=== PATIENT | male | born 1985 | race Caucasian/White ===

== ENCOUNTER 2025-03-21 15:50 | Inpatient (IN) | payer OTHER, SELFPAY ==
[2025-03-21] VITALS (51 sets, daily range): BP systolic 97–132; BP diastolic 46–113; PULSE 70–90; RESP 8–26; TEMP 36.6–36.8; O2SAT 87–98
--- NOTE | 2025-03-21 15:45 | RT.EKG_ITS ---
APPROVED REPORT Exam: Resting ECG Reason for Exam: chest ightness Patient Location: E HR:78 bpm ECG Measurements Heart Rate 78 AXIS AK 148 P 29 QRSd 113 QRS 13 QT 398 T 18 QTc 454 Conclusion Sinus rhythm...normal P axis, V-rate 60- 99
--- NOTE | 2025-03-21 16:15 | W.ED.GENAD ---
Discharge Plan Disposition Patient Disposition: Admit to [facility] Condition: Improving Discharge Details Clinical Impression: Hyperglycemia due to type 2 diabetes mellitus, Acute on chronic renal failure, Hyperglycemia without ketosis ED Provider: Danny Jennings Home Meds and New Rx's Prescriptions: Continued Ozempic 0.25 mg or 0.5 mg(2 mg/1.5 mL) pen injector 0.25 mg subcut QWEEK Rx Instructions: for 4 weeks losartan [Cozaar] 100 mg tablet 100 mg PO DAILY propranolol [Inderal LA] 120 mg capsule,extended release 24 hr 240 mg PO DAILY gabapentin 800 mg tablet 800 mg PO TID omeprazole 20 mg capsule,delayed release(DR/EC) 20 mg PO DAILY allopurinol 200 mg tablet 200 mg PO DAILY albuterol 90 mcg/actuation aerosol inhalation PRN colchicine 0.6 mg capsule 0.6 mg PO 4XW chlorthalidone 25 mg tablet 25 mg PO DAILY Discharge Data Discharge Physician: Danny Jennings HPI General Date/Time Provider Initiated Documentation: 03/21/25 16:15. HPI Narrative: Patient presents emergency department for he went to the clinic at the [facility] and they told him his sugar was 500 he does experience that he has been having polydipsia and polyuria and was recently started on Ozempic Related Data Home Medications ?Medication ?Instructions ?Recorded ?Confirmed albuterol 90 mcg/actuation aerosol mcg inhalation PRN 03/21/25 inhaler allopurinol 200 mg tablet 200 mg PO DAILY 03/21/25 03/21/25 chlorthalidone 25 mg tablet 25 mg PO DAILY 03/21/25 03/21/25 colchicine 0.6 mg capsule 0.6 mg PO 4XW 03/21/25 03/21/25 gabapentin 800 mg tablet 800 mg PO TID 03/21/25 03/21/25 losartan 100 mg tablet (Cozaar) 100 mg PO DAILY 03/21/25 03/21/25 omeprazole 20 mg capsule,delayed 20 mg PO DAILY 03/21/25 03/21/25 release propranolol 120 mg capsule,24 240 mg PO DAILY 03/21/25 03/21/25 hr,extended release (Inderal LA) semaglutide 0.25 mg or 0.5 mg (2 0.25 mg subcut QWEEK 03/21/25 03/21/25 mg/1.5 mL) subcutaneous pen injector (Ozempic) Allergies Allergy/AdvReac Type Severity Reaction Status Date / Time No Known Allergies Allergy Unverified 03/21/25 16:02 General Stated Complaint: Diabetes TWILA: 2 Review of Systems Narrative: Review of Systems: Constitutional: No fevers, chills, sweats Eye: No recent visual problems ENT: No ear pain, nasal congestion, sore throat Respiratory: No shortness of breath, cough Cardiovascular: No Chest pain, palpitations, syncope Gastrointestinal: No nausea, vomiting, diarrhea Genitourinary: No hematuria Shubham/Lymph: Negative for bruising tendency, swollen lymph glands Musculoskeletal: No back pain, neck pain, joint pain, muscle pain, decreased range of motion Integumentary: No rash, pruritus, abrasions Neurologic: Alert & oriented X 4 Psychiatric: No anxiety, depression Exam Narrative Exam Narrative: Exam; vitals signs as reported above normal Constitutional; In no acute distress, afebrile General: cooperative, healthy appearing, comfortable and no acute distress HEENT: Head: normal to inspection, no palpable skull fracture and normocephalic atraumatic Eyes: : appearance normal, both eyes and all related structures EOM intact bilaterally Pupils: PERRL : conjunctiva normal Direct ophthalmoscopy: normal light reflex, normal conjunctiva, normal visual acuity Ears: Normal TM, normal external canal Nose: normal no rhinorreha Neck no JVD, supple non tender Neck: normal visual inspection, full ROM and no lymphadenopathy Chest: normal inspection of the chest Respiratory : normal respiratory effort and able to speak in complete sentences no wheezing no rales Cardio Rate: regular rate, rhythm: regular rhythm normal heart sounds S1 and S2 no murmurs, gallops, or rubs GI : normal to inspection, normal bowel sounds, soft, non tender, non distended, no organomegaly Back/Spine/ no CVA tenderness Thoracic/Lumbar Spine: no tenderness or deformities Skin no rashes or lesions Neuro: patient alert oriented x 4 and no meningeal signs, Cranial Nerves: CN's II-XI intact bilaterally, Cognition: normal cognition, Speech: speech normal, Gait: normal gait, Depp tendon reflexes normal 2+ muscle strength 5/5 bilaterally Extremities, no edema, full range of motion, normal strength Course Vital Signs Vital signs: Vital Signs Temperature 36.8 C 03/21/25 15:57 Pulse 81 03/21/25 15:57 Respiratory Rate 18 03/21/25 15:57 Blood Pressure 119/85 03/21/25 15:57 Pulse Oximetry 93 03/21/25 15:57 Temperature 36.8 C 03/21/25 15:57 Temperature Source Oral 03/21/25 15:57 Pulse 81 03/21/25 15:57 Respiratory Rate 18 03/21/25 15:57 Blood Pressure 119/85 03/21/25 15:57 Pulse Oximetry 93 03/21/25 15:57 Medical Decision Making MDM: Summary: Patient presents emergency department with believe simple area and he does not know he is diabetic although he suspected it. He said he started healthy stopped drinking and stop smoking. Here in the emergency department he looks well physical exam is unremarkable but his fingerstick is greater than 600 in the blood sugar level was 536 with pseudohyponatremia with a sodium of 124. EKG does not show any acute abnormality troponin is negative his creatinine is elevated at 3 with a BUN of 54. Patient received IV fluids and will receive 2 days of regular insulin and he probably will need to be admitted for an insulin drip and for management of his new onset diabetes Data Review Analysis All the data on this patient was reviewed by me including laboratory and imaging studies as well as bedside studies performed by me Independent review of Studies Imaging Lab: As reported above Risk Stratification: Patient with new onset diabetes will need to be admitted for IV hydration and blood sugar management Differential Diagnosis: 1. Hyperosmolar nonketotic type 2 diabetes mellitus 2. Hyperglycemia 3. DKA 4. Pseudohyponatremia 5. Acute on chronic renal failure Consultants: Spoke with the hospitalist who agreed to admit the patient Shared disposition: Patient agrees to stay in the hospital for blood sugar management Impression: Medical Records Medical records reviewed: Yes I reviewed the patient's medical records. Lab Data Lab results reviewed: Yes I reviewed the patient's lab results. ECG Data Attestation: I personally reviewed and interpreted this ECG (s) as follows: Interpretation: Heart rate 78 normal sinus rhythm no acute ST-T changes PFSH All Active Problems (Updated 03/21/25 @ 17:31 by Danny Jennings MD) Hyperglycemia without ketosis (Acute) Acute on chronic renal failure (Acute) Hyperglycemia due to type 2 diabetes mellitus (Acute) Social History Smoking/Tobacco Use Status: Current every day Tobacco Type: cigarettes Smoking risk assessment performed?: Yes Alcohol Intake: current Alcohol Intake frequency: 3 or more drinks per day Drug use: Daily Substance use type: marijuana Housing: house Do you feel safe at home: Yes Do you feel safe in your relationship?: Yes
[2025-03-21 16:40] LABS: Abs Immature Grans 0.03 10^3/uL (0.0-0.06); HCT 42.8 % (40.0-50.0); HGB 15.5 g/dL (13.5-17.5); Immature Grans % 0.3 %; MCH 30.6 pg (27.0-33.0); MCHC 36.2 % (32.0-36.0); MCV 85 fL (80-95); MPV 11.6 fL (8.0-11.0); Platelet Count 345 10^3/uL (130-400); RBC 5.06 10^6/uL (4.36-5.78); RDW 11.3 % (11.8-14.1); RDW-SD 34.5 fL; WBC 10.81 10^3/uL (4.4-10.8)
[2025-03-21 17:01] LABS: ALT 149 U/L (16-63); AST 99 U/L (15-37); Albumin 4.6 g/dL (3.4-5.0); Alkaline Phosphatase 130 U/L (46-116); Anion Gap 12.1 mmol/L (3-11); BUN 42 mg/dL (7-18); Bilirubin, Total 0.8 mg/dL (0.2-1.0); CO2 27.9 mmol/L (21.0-32.0); Calcium 10.3 mg/dL (8.5-10.1); Chloride 84 mmol/L (98-107); Estimated GFR 24.95 (mL/min/1.73m2); Magnesium 2.6 mg/dL (1.8-2.4); Potassium 3.2 mmol/L (3.5-5.1); Total Protein 9.4 g/dL (6.4-8.2); Troponin I 7 ng/L (<or=76)
[2025-03-21 17:06] LABS: Glucose 533 mg/dL (74-106); Sodium 124 mmol/L (136-145)
[2025-03-21] MEDS: Insulin REGULAR-Human 100 UNITS/ML UNIT 10 UNITS IV (17:17)
[2025-03-21] MEDS: Normal Saline 1,000 ML 1000 ML IV (17:19)
[2025-03-21] MEDS: Nicotine 14 MG/24 HR PATCH TD (17:32)
[2025-03-21 17:56] LABS: Troponin I 7 ng/L (<or=76)
--- NOTE | 2025-03-21 17:56 | W.PM.HP.N ---
Date of service: 03/21/25 Time of Service: 18:31 Assessment and Plan Assessment and plan (1) Hyperglycemia without ketosis: Status: Acute Assessment and plan: - Patient initially presented concern for hyperglycemia with glucose of 533 Patient with recent diagnosis of diabetes was started on Ozempic - Given 10 units of IV insulin 1 L normal saline in the emergency department with improvement of blood glucose down to 300 - Will place patient on sliding scale insulin and assess for total insulin needs over the next 24 hours (2) Alcohol use disorder: Status: Acute Assessment and plan: - Patient reports drinking 6x 12 ounce beers a night, and having history of withdrawals with tremors but without seizure, last drink was 9 PM on 03/20/2025 - Given history of withdrawal and high risk during this hospitalization, patient will have loading dose of phenobarbital, will check CIWA and give additional doses of phenobarbital as needed (3) VALORIE (acute kidney injury): Status: Acute Assessment and plan: - Unknown baseline, though patient's creatinine emergency department 3.1 - Status post 1 L normal saline in the emergency department - Follow-up repeat BMP (4) Hypokalemia: Status: Acute Assessment and plan: - Potassium 3.2 in the emergency department - Will follow-up repeat BMP and replace potassium as needed (5) Pseudohyponatremia: Status: Acute Assessment and plan: - Sodium 124, with glucose of 533 dilates with corrected sodium 138 - Follow-up repeat BMP (6) HTN (hypertension): Status: Chronic Assessment and plan: - Continue home chlorthalidone and losartan History of Present Illness History of Present Illness Chief Complaint: hyperglycemia Narrative: 39-year-old gentleman with past medical history of hypertension and newly diagnosed diabetes having started Ozempic who presents emergency department from the [facility] clinic was told his blood sugar is 500. Patient states he was recently started on Ozempic and he has been experiencing polydipsia and polyuria. Upon being contacted by the [facility] for his high blood sugars he presented to the emergency department. He denies any headache, lightheadedness, dizziness, nausea vomiting or diarrhea. In the emergency department the patient was noted to have normal vital signs and physical exam. However, CMP showed a blood sugar of 533, sodium of 124 which corrected to 130 likely secondary to pseudohyponatremia in the setting of hyperglycemia, potassium of 3.1, creatinine of 3. While in the emergency department patient was given 1 L of normal saline and 10 units of IV insulin which did improve his blood sugar with a fingerstick down to about 300. At which time emergency room physician paged hospitalist for admission for patient with hyperglycemia requiring insulin management. Review of Systems All systems reviewed & are unremarkable except as noted in HPI and below PFSH All Active Problems (Updated 03/21/25 @ 20:45 by Jun Xie MD) Alcohol use disorder (Acute) HTN (hypertension) (Chronic) Pseudohyponatremia (Acute) Hypokalemia (Acute) VALORIE (acute kidney injury) (Acute) Hyperglycemia without ketosis (Acute) Acute on chronic renal failure (Acute) Hyperglycemia due to type 2 diabetes mellitus (Acute) Social History Smoking/Tobacco Use Status: Current every day Tobacco Type: cigarettes Smoking risk assessment performed?: Yes Alcohol Intake: current Alcohol Intake frequency: 3 or more drinks per day Drug use: Daily Substance use type: marijuana Housing: house Do you feel safe at home: Yes Do you feel safe in your relationship?: Yes Meds Allergies and Home Medications Allergies Allergy/AdvReac Type Severity Reaction Status Date / Time No Known Allergies Allergy Unverified 03/21/25 16:02 Home Medications ?Medication ?Instructions ?Recorded ?Confirmed ?Type albuterol 90 mcg/actuation aerosol mcg inhalation PRN 03/21/25 History inhaler allopurinol 200 mg tablet 200 mg PO DAILY 03/21/25 03/21/25 History chlorthalidone 25 mg tablet 25 mg PO DAILY 03/21/25 03/21/25 History colchicine 0.6 mg capsule 0.6 mg PO 4XW 03/21/25 03/21/25 History gabapentin 800 mg tablet 800 mg PO TID 03/21/25 03/21/25 History losartan 100 mg tablet (Cozaar) 100 mg PO DAILY 03/21/25 03/21/25 History melatonin 1 mg PO HS PRN 03/21/25 03/21/25 History omeprazole 20 mg capsule,delayed 20 mg PO DAILY 03/21/25 03/21/25 History release propranolol 120 mg capsule,24 240 mg PO DAILY 03/21/25 03/21/25 History hr,extended release (Inderal LA) quetiapine 25 mg tablet (Seroquel) 50 mg PO QHS PRN sleep 03/21/25 03/21/25 History semaglutide 0.25 mg or 0.5 mg (2 0.25 mg subcut QWEEK 03/21/25 03/21/25 History mg/1.5 mL) subcutaneous pen injector (Ozempic) Exam Narrative Exam Narrative: Well-appearing gentleman laying in bed in no acute distress, ANO x 4, heart regular rhythm, lungs good auscultation bilaterally, abdomen soft, nontender, nondistended Results Labs 03/21/25 16:13 03/21/25 20:10 Labs: Laboratory Results - last 24 hr 03/21/25 16:13 WBC 10.81 H RBC 5.06 Hgb 15.5 Hct 42.8 MCV 85 MCH 30.6 MCHC 36.2 H RDW 11.3 L Plt Count 345 MPV 11.6 H Immature Gran % 0.3 Neutrophils % 60.2 Lymphocytes % 31.1 Monocytes % 5.1 Eosinophils % 2.4 Basophils % 0.9 Nucleated RBC % 0.0 Absolute Neutrophils 6.51 Absolute Lymphocytes 3.36 Absolute Monocytes 0.55 Absolute Eosinophils 0.26 Absolute Basophils 0.10 Sodium 124 L* Potassium 3.2 L Chloride 84 L Carbon Dioxide 27.9 Anion Gap 12.1 H BUN 42 H Creatinine 3.1 H Est GFR (CKD-EPI 2020) 24.95 Glucose 533 H* Calcium 10.3 H Magnesium 2.6 H Total Bilirubin 0.8 AST 99 H ALT 149 H Alkaline Phosphatase 130 H Troponin I 7 Total Protein 9.4 H Albumin 4.6 Last Vital Signs Temp 98.2 F 03/21/25 16:18 Pulse 81 03/21/25 16:18 Resp 17 03/21/25 17:30 BP 119/85 03/21/25 16:18 Pulse Ox 93 03/21/25 16:18 Time Spent Time spent with Patient: >75 minutes Time was spent: preparing to see the patient(eg.review tests), obtaining and/or reviewing separately otained hiistory, ordering medications,tests, procedures, referring, communicating with other health morning caregiver, indepentently interpreting results, counseling the patient and care coordination
[2025-03-21 17:59] LABS: Glucose 500 mg/dL (Negative)
[2025-03-21 18:15] LABS: C & S Indicated? No; RBC 0-2 HPF (0-2); WBC 0-2 HPF (0-5)
[2025-03-21] MEDS: PHENobarbital 200 MG in Normal Saline 50 ML 100 MG IVPB (20:29)
[2025-03-21] MEDS: Gabapentin 800 MG TAB PO (20:30)
[2025-03-21] MEDS: QUEtiapine 25 MG TAB 50 MG PO (20:30)
[2025-03-21] MEDS: Normal Saline Flush 10 ML SYR IVP (20:31)
[2025-03-21 20:32] LABS: Anion Gap 12.5 mmol/L (3-11); BUN 39 mg/dL (7-18); CO2 25.5 mmol/L (21.0-32.0); Calcium 10.0 mg/dL (8.5-10.1); Chloride 92 mmol/L (98-107); Estimated GFR 30.81 (mL/min/1.73m2); Glucose 235 mg/dL (74-106); Potassium 3.0 mmol/L (3.5-5.1); Sodium 130 mmol/L (136-145)
[2025-03-21 20:40] LABS: Troponin I 8 ng/L (<or=76)
[2025-03-21] MEDS: Insulin Aspart 300 UNITS/3 ML PEN SC (21:43)
--- NOTE | 2025-03-21 23:25 | W.PC.ACHO ---
Registration Status: ADM IN Primary Language: Preferred Language: ED Information & Data Chief Complaint Diabetes 03/21/25 16:33 Triage Note Dizziness, confusion, chest 03/21/25 15:57 pressure with increased fatigue was told by PCP BS over 500 to go to the nearest ED. Cut ETOH consumption in 1/2 over the past 2 weeks. BS in tr Most Recent Vital Signs Temperature 36.6 C 03/21/25 19:00 Temperature Source Temporal Artery Scan 03/21/25 19:00 Pulse 78 03/21/25 23:15 Pulse 78 03/21/25 23:15 Respiratory Rate 15 03/21/25 23:15 Respiratory Effort Normal 03/21/25 19:00 Respiratory Depth Normal 03/21/25 19:00 Respiratory Pattern Normal 03/21/25 19:00 Blood Pressure 100/59 L 03/21/25 23:15 Blood Pressure Mean 71 03/21/25 23:15 Blood Pressure Position Supine 03/21/25 19:00 Pulse Oximetry 90 L 03/21/25 23:15 Oxygen Delivery Method Room Air 03/21/25 19:00 Oxygen Flow Rate 0 03/21/25 19:00 Pain Level 0 03/21/25 19:00 Allergies No Known Allergies Allergy (Unverified 03/21/25 16:02) Active Medications Generic Name Dose Route Start Last Admin Trade Name Freq PRN Reason Stop Dose Admin Gabapentin 800 mg 03/21/25 20:00 03/21/25 20:30 Gabapentin 800 Mg Tab PO 800 mg TID KORI Administration Insulin Aspart 0 units 03/21/25 22:00 03/21/25 21:43 Insulin Aspart 300 Units/3 Ml Pen SC 3 units 0800,1200,1700,2200 KORI Administration Protocol Quetiapine Fumarate 50 mg 03/21/25 19:33 03/21/25 20:30 Quetiapine 25 Mg Tab PO 50 mg HS PRN PRN Administration SLEEP Sodium Chloride 0 ml 03/21/25 20:00 03/21/25 20:31 Normal Saline Flush 10 Ml Syr IVP 20 ml BID KORI Administration IV IV Catheter Type [Left Saline Lock Antecubital] IV Catheter Gauge [Left 20 Antecubital] Diet Orders Category Date Time Status Diabetes Consistent CHO [DIET] Nutrition 03/21/25 Dinner Active Diagnostics 08/12/25 08/12/25 08/12/25 Range/Units 20:10 17:50 17:30 WBC (4.4-10.8) 10^3/uL RBC (4.36-5.78) 10^6/uL Hgb (13.5-17.5) g/dL Hct (40.0-50.0) % MCV (80-95) fL MCH (27.0-33.0) pg MCHC (32.0-36.0) % RDW (11.8-14.1) % Plt Count (130-400) 10^3/uL MPV (8.0-11.0) fL Immature Gran % % Neutrophils % % Lymphocytes % % Monocytes % % Eosinophils % % Basophils % % Nucleated RBC % (0.0-0.3) % Absolute Neutrophils (1.2-6.7) 10^3/uL Absolute Lymphocytes (1.2-3.4) 10^3/uL Absolute Monocytes (0.1-0.8) 10^3/uL Absolute Eosinophils (0.0-0.7) 10^3/uL Absolute Basophils (0.0-0.2) 10^3/uL Sodium 130 L (136-145) mmol/L Potassium 3.0 L (3.5-5.1) mmol/L Chloride 92 L (98-107) mmol/L Carbon Dioxide 25.5 (21.0-32.0) mmol/L Anion Gap 12.5 H (3-11) mmol/L BUN 39 H (7-18) mg/dL Creatinine 2.6 H (0.70-1.30) mg/dL Est GFR (CKD-EPI 2020) 30.81 (mL/min/1.73m2) Glucose 235 H (74-106) mg/dL Calcium 10.0 (8.5-10.1) mg/dL Magnesium (1.8-2.4) mg/dL Total Bilirubin (0.2-1.0) mg/dL AST (15-37) U/L ALT (16-63) U/L Alkaline Phosphatase (46-116) U/L Troponin I 8 7 (<or=76) ng/L Total Protein (6.4-8.2) g/dL Albumin (3.4-5.0) g/dL Urine Color Yellow (Yellow) Urine Clarity Clear (Clear) Urine pH 5.5 (5-8) Ur Specific [place] <= 1.005 (1.005-1.025) Urine Protein 30 H (Neg-Trace) mg/dL Urine Ketones Negative (Negative) mg/dL Urine Blood Trace-lysed H (Negative) Urine Nitrite Negative (Negative) Urine Bilirubin Negative (Negative) Urine Urobilinogen 0.2 (Up to 0.2) mg/dL Ur Leukocyte Esterase Negative (Negative) Urine RBC 0-2 (0-2) HPF Urine WBC 0-2 (0-5) HPF Ur Epithelial Cells Few (Negative) HPF Urine Crystals Negative (Negative) HPF Urine Bacteria Rare (Negative) HPF Urine Casts Negative (Negative) LPF Urine Mucus Negative (Negative) Ur Culture Indicated? No Urine Glucose 500 H (Negative) mg/dL 03/21/25 Range/Units 16:13 WBC 10.81 H (4.4-10.8) 10^3/uL RBC 5.06 (4.36-5.78) 10^6/uL Hgb 15.5 (13.5-17.5) g/dL Hct 42.8 (40.0-50.0) % MCV 85 (80-95) fL MCH 30.6 (27.0-33.0) pg MCHC 36.2 H (32.0-36.0) % RDW 11.3 L (11.8-14.1) % Plt Count 345 (130-400) 10^3/uL MPV 11.6 H (8.0-11.0) fL Immature Gran % 0.3 % Neutrophils % 60.2 % Lymphocytes % 31.1 % Monocytes % 5.1 % Eosinophils % 2.4 % Basophils % 0.9 % Nucleated RBC % 0.0 (0.0-0.3) % Absolute Neutrophils 6.51 (1.2-6.7) 10^3/uL Absolute Lymphocytes 3.36 (1.2-3.4) 10^3/uL Absolute Monocytes 0.55 (0.1-0.8) 10^3/uL Absolute Eosinophils 0.26 (0.0-0.7) 10^3/uL Absolute Basophils 0.10 (0.0-0.2) 10^3/uL Sodium 124 L* (136-145) mmol/L Potassium 3.2 L (3.5-5.1) mmol/L Chloride 84 L (98-107) mmol/L Carbon Dioxide 27.9 (21.0-32.0) mmol/L Anion Gap 12.1 H (3-11) mmol/L BUN 42 H (7-18) mg/dL Creatinine 3.1 H (0.70-1.30) mg/dL Est GFR (CKD-EPI 2020) 24.95 (mL/min/1.73m2) Glucose 533 H* (74-106) mg/dL Calcium 10.3 H (8.5-10.1) mg/dL Magnesium 2.6 H (1.8-2.4) mg/dL Total Bilirubin 0.8 (0.2-1.0) mg/dL AST 99 H (15-37) U/L ALT 149 H (16-63) U/L Alkaline Phosphatase 130 H (46-116) U/L Troponin I 7 (<or=76) ng/L Total Protein 9.4 H (6.4-8.2) g/dL Albumin 4.6 (3.4-5.0) g/dL Urine Color (Yellow) Urine Clarity (Clear) Urine pH (5-8) Ur Specific [place] (1.005-1.025) Urine Protein (Neg-Trace) mg/dL Urine Ketones (Negative) mg/dL Urine Blood (Negative) Urine Nitrite (Negative) Urine Bilirubin (Negative) Urine Urobilinogen (Up to 0.2) mg/dL Ur Leukocyte Esterase (Negative) Urine RBC (0-2) HPF Urine WBC (0-5) HPF Ur Epithelial Cells (Negative) HPF Urine Crystals (Negative) HPF Urine Bacteria (Negative) HPF Urine Casts (Negative) LPF Urine Mucus (Negative) Ur Culture Indicated? Urine Glucose (Negative) mg/dL [id number] Documentation Fingerstick Glucose Start: 03/21/25 16:01 Freq: Status: Complete Protocol: Activity Type Activity Date Activity User E-sign Co-sign Detail Recorded Client Recorded Date Recorded By Document 03/21/25 17:57 BKG DAEMON(5) [id number] 03/21/25 17:58 BKG DAEMON(6) Fingerstick Glucose Start: 03/21/25 18:05 Freq: AC & HS Status: Active Protocol: Activity Type Activity Date Activity User E-sign Co-sign Detail Recorded Client Recorded Date Recorded By Document 03/21/25 21:13 BKG DAEMON(7) [id number] 03/21/25 21:15 BKG DAEMON(8) Intake and Output - 24 Hour Total 03/21/25 15:50 thru 03/21/25 23:19 Intake Total 1610 Output Total 600 Balance 1010 Weight 131 kg Intake: IV 1010 Oral 600 Output: Urine 600 Other: Urine Color Pale Urine Appearance Clear Urine Odor Normal Falls Risk Assessment History of Falls No History 03/21/25 19:00 Contributing Factors No Factors 03/21/25 19:00 Ambulatory Aids Independent 03/21/25 19:00 Tubes/Lines None 03/21/25 19:00 Gait Evaluation No gait disturbance 03/21/25 19:00 Cognition No cognitive impairment 03/21/25 19:00 Fall Total Score 0 03/21/25 19:00 Level of Risk Standard/Low Risk 03/21/25 19:00 Problems (Last Reviewed 03/21/25 @ 17:27 by Danny Jennings MD) Alcohol use disorder (Acute) HTN (hypertension) (Chronic) Pseudohyponatremia (Acute) Hypokalemia (Acute) VALORIE (acute kidney injury) (Acute) Hyperglycemia without ketosis (Acute) v v v v v v v v v Sending and/or Receiving Nurses: Please use comment section below to note any information pertinent to the patient hand-off not included above. Information / Comments: Report received from: Major
[2025-03-21] MEDS: PHENobarbital 150 MG in Normal Saline 50 ML 100 MG IVPB (23:54)
[2025-03-22] VITALS (26 sets, daily range): BP systolic 88–131; BP diastolic 50–98; PULSE 68–96; RESP 11–26; TEMP 35.7–36.9; O2SAT 92–98
[2025-03-22 00:36] LABS: Anion Gap 11.4 mmol/L (3-11); BUN 43 mg/dL (7-18); CO2 25.6 mmol/L (21.0-32.0); Calcium 9.3 mg/dL (8.5-10.1); Chloride 89 mmol/L (98-107); Estimated GFR 24.01 (mL/min/1.73m2); Glucose 445 mg/dL (74-106); Potassium 3.0 mmol/L (3.5-5.1); Sodium 126 mmol/L (136-145)
[2025-03-22] MEDS: Insulin Aspart 300 UNITS/3 ML PEN 9 UNITS SC (01:21)
[2025-03-22] MEDS: Normal Saline 1,000 ML 100 ML IV ×2 (01:23→11:44)
[2025-03-22] MEDS: PHENobarbital 150 MG in Normal Saline 50 ML 100 MG IVPB (03:03)
[2025-03-22] MEDS: Insulin Aspart 300 UNITS/3 ML PEN 7 UNITS SC (03:48)
[2025-03-22] MEDS: Nicotine 21 MG/24 HR PATCH TD (06:01)
[2025-03-22 06:43] LABS: HCT 43.3 % (40.0-50.0); HGB 15.4 g/dL (13.5-17.5); MCH 30.9 pg (27.0-33.0); MCHC 35.6 % (32.0-36.0); MCV 87 fL (80-95); MPV 12.3 fL (8.0-11.0); Platelet Count 253 10^3/uL (130-400); RBC 4.98 10^6/uL (4.36-5.78); RDW 11.4 % (11.8-14.1); RDW-SD 36.3 fL; WBC 9.66 10^3/uL (4.4-10.8)
[2025-03-22 07:01] LABS: ALT 137 U/L (16-63); AST 118 U/L (15-37); Albumin 4.0 g/dL (3.4-5.0); Alkaline Phosphatase 111 U/L (46-116); Anion Gap 8.6 mmol/L (3-11); BUN 39 mg/dL (7-18); Bilirubin, Total 0.5 mg/dL (0.2-1.0); CO2 31.4 mmol/L (21.0-32.0); Calcium 9.8 mg/dL (8.5-10.1); Chloride 91 mmol/L (98-107); Estimated GFR 28.19 (mL/min/1.73m2); Glucose 324 mg/dL (74-106); Magnesium 2.7 mg/dL (1.8-2.4); Sodium 131 mmol/L (136-145); Total Protein 8.3 g/dL (6.4-8.2)
[2025-03-22 07:03] LABS: Potassium 2.6 mmol/L (3.5-5.1)
[2025-03-22] MEDS: Insulin Aspart 300 UNITS/3 ML PEN SC ×4 (07:34→20:55)
[2025-03-22] MEDS: Chlorthalidone 25 MG TAB PO (08:20)
[2025-03-22] MEDS: Losartan 50 MG TAB 100 MG PO (08:21)
[2025-03-22] MEDS: Multivitamin TAB 1 TAB PO (08:22)
[2025-03-22] MEDS: Folic Acid 1 MG TAB PO (08:22)
[2025-03-22] MEDS: Thiamine 100 MG TAB PO (08:23)
[2025-03-22] MEDS: Normal Saline Flush 10 ML SYR IVP (08:23)
[2025-03-22] MEDS: Gabapentin 800 MG TAB PO ×2 (08:23→13:35)
[2025-03-22] MEDS: Omeprazole 20 MG CAPCR PO (08:25)
[2025-03-22] MEDS: Propranolol 80 MG CAPCR 240 MG PO (08:43)
--- NOTE | 2025-03-22 09:00 | INITIAL_ITS ---
Date of service: 03/22/25 Time of Service: 09:01 Care Management Initial Assmt Initial Assessment Reason for Hospitalization: [facility] Functional Status/Living Situation Patient Presentation: Mckay was sitting in a chair when CM met with him. He is pleasant and easy to engage in conversation. He resides alone in [place], [place], with his main supports being his father (and girlfirend.) He has a sister, though they are not close. At baseline, Mckay is active and independent, he drives and has a vehicle in the hospital parking lot. He is disabled verteran and receives SSDI as well as VA disablity benefits. His primary care and pharmacy are also through the [facility], if he needs an RX urgently he would like to pick it up at [facility] in [place]. Mckay is currently connected with [facility] for support with sobriety, which has been a long standing challange for him. 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 Town of Residence: [place] Resides with: Alone Employment Status: Disabled Instrumental Activities of Daily Living (ADLs): Independent Medications Medication Management: No Issues/Barriers identified Physical Functioning/Mobility Assistive Device: None Advance Directives Advance Directives: Do you have an Advance Directive: AD On File at [facility]: N 03/21/25, 17:45 Date Asked 03/21/25 03/21/25, 17:45 AD Date Reviewed COLST On File at [facility] COLST Date Scanned Code Status Resuscitation Status Full Code Portal Pt does not currently have a portal and education provided: Yes Insurance Coverage/Financial Issues Insurance: [place] - [id number] Care Team Visit Care Team Role Provider Type DULCE MARISCAL Primary Care Provider NON-[facility] STAFF PHYSICIAN Nissa Cole RDN, [facility] Other Providers PHOTO JOURNALIST Jameson Gusman RDN Other Providers PHOTO JOURNALIST Danny Jennings MD Emergency Provider [facility] STAFF PHYSICIAN Jerson Sinha MD Admit Provider [facility] STAFF PHYSICIAN Attending Provider Discharge Potential Discharge Needs: PCP F/U Appt Anticipated Barriers to Discharge: None Identified Patient/Family Education Needs: Review discharge instructions, discuss Ask Me Three Transportation: Private vehicle Plan: Anticipate, Mckay will discharge home via private vehicle once medically cleared. He will follow up with [facility] providers and continue per the established plan of care. No new services are anticipated at this time. Recommend follow up in the community for sobriety supports. CM will follow. Social Determinants of Health Screening Social Determinants of health last assessed in clinic: 03/22/25 Will the Patient Participate in the Screening?: Yes Do you worry about having a steady place to live?: no Problems where you live: no known problems In the past 12 months, have you had to go without electric, gas, oil or water in your home?: no 1. Within the past 12 months, we worried whether our food would run out before we got money to buy more.: Never true 2. Within the past 12 months, the food we bought just didn't last and we didn't have money to get more.: Never true Has lack of transportation kept you from medical appointments or from doing things needed for daily living?: no Has anyone in your life made you feel unsafe or unsupported?: no How hard is it for you to pay for the very basics like food, housing, medical care, and heating? Would you say it is:: Not hard at all Do you want help finding or keeping work or a job?: I do not need or want help If for any reason you need help with day-to-day activities such as bathing, preparing meals, shopping, managing finances, etc., do you get the help you need?: I don?t need any help How often do you feel lonely or isolated from those around you?: Never Do you speak a language other than [place] at home?: No Does the patient want assistance with any of the above?: No PFSH All Active Problems (Updated 03/21/25 @ 20:45 by Jun Xie MD) Alcohol use disorder (Acute) HTN (hypertension) (Chronic) Pseudohyponatremia (Acute) Hypokalemia (Acute) VALORIE (acute kidney injury) (Acute) Hyperglycemia without ketosis (Acute) Acute on chronic renal failure (Acute) Hyperglycemia due to type 2 diabetes mellitus (Acute) Social History Smoking/Tobacco Use Status: Current every day Tobacco Type: cigarettes Smoking risk assessment performed?: Yes Alcohol Intake: current Alcohol Intake frequency: 3 or more drinks per day Drug use: Daily Substance use type: marijuana Housing: apartment Do you feel safe at home: Yes Do you feel safe in your relationship?: Yes
--- NOTE | 2025-03-22 11:14 | W.INDIABCONS ---
Date of service: 03/23/25 Time of Service: 08:27 Diabetes Inpatient Consult Reason for Visit: Diabetes education/mgt consult DESCRIPTION/ASSESSMENT: 39yo male being treated for hperglycemia without ketosis, VALORIE, low potassium, and etoh use disorder. Chronic HTN. Was contacted by the ID nurse when labs showed hyperglycemia and presented with 533 glucose - treated for this and currently managed on sensitive sliding scale novolog at meals and 22:00 for corrections. metformin started at 500mg BID and will continue GLP-1 that he has recently started with PCP. I visited to provider beginning education on glucose control with diet/lifestyle and reviewed handout with emphasis on balanced plate - no more than 4 carb serving per meal and emphasize quality (less processed./high fiber) carbs for the same serving size. Also highlighted etoh use and influence on erratice glucose levels and influence on food choices. 324 FPG yesterday - pending this morning. 245 fingerstick at bkfst today. Has trended down but has room for tighter control with gradual adjustments to meds (could increase metformin or add sglt-2i if he has difficulty getting to target A1C of less than 7%) and anticipated diet changes (he affirms realization that he needs to change his diet) Gave him handout with my contact info - he plans to see what nutrition services are offered by ID and will contact me if he desires outpatient nutrition education from me if that turns out to be the better option. INTERVENTION: would suggest glucometer rx at discharge with instructions to check fasting glucose and ideally 1-2 hours post prandial and HS until he gets a better feels for his glucose trends. Would recommend A1C for indication of recent glucose control PLAN: will monitor nutrition related labs/glucose, and continue to contact daily until discharge for any questions and chances for additional diet education. Time Spent in Nutritional Counseling and Treatment: 20 min
--- NOTE | 2025-03-22 13:28 | PHA.REVIEW2 ---
Pharmacy Admission Review Admission Clinical Review Admission Pharmacy Review: Alcohol use disorder (Acute) Pseudohyponatremia (Acute) Hypokalemia (Acute) VALORIE (acute kidney injury) (Acute) Hyperglycemia without ketosis (Acute) No Known Allergies Allergy (Unverified 03/21/25 16:02) Resuscitation Status Full Code Height 6 ft 2 in Weight 136 kg Pharmacy Admission Review Renal Dosing Renal Dosing: BUN 39 mg/dL (7-18) H 03/22/25 05:39 Creatinine 2.8 mg/dL (0.70-1.30) H 03/22/25 05:39 Medications needing adjustments: Intervened (CrCl 50.9 mL/min, SCr increased from 2.6) List of meds needing interventions: Recommended max dose of gabapentin for CrCl < 80 is 1800mg/day, patients currently on 2400mg/day. Reached out to provider, waiting to hear back. Anticoagulation Anticoagulation: Hgb 15.4 g/dL (13.5-17.5) 03/22/25 05:39 Hct 43.3 % (40.0-50.0) 03/22/25 05:39 Plt Count 253 10^3/uL (130-400) 03/22/25 05:39 Creatinine 2.8 mg/dL (0.70-1.30) H 03/22/25 05:39 DVT Prophylaxis: Reviewed (SCDs) Relevant Labs Relevant Labs: Sodium 131 mmol/L (136-145) L 03/22/25 05:39 Potassium 2.6 mmol/L (3.5-5.1) L* 03/22/25 05:39 Chloride 91 mmol/L (98-107) L 03/22/25 05:39 Magnesium 2.7 mg/dL (1.8-2.4) H 03/22/25 05:39 Electrolytes, C-Reactive P, ESR: Intervened (Reached out to provider regarding potassium - no replacement ordered- waiting to hear back, AST/ALT 118/137) DM Control DM Control: Glucose 324 mg/dL (74-106) H 03/22/25 05:39 Finger Stick Blood Glucose 362 1139 Finger Stick Blood Glucose 362 1139 Finger Stick Blood Glucose 276 0730 Finger Stick Blood Glucose 274 0724 Finger Stick Blood Glucose 274 0724 Finger Stick Blood Glucose 301 0543 Finger Stick Blood Glucose 301 0543 DM Control: Reviewed (Newly diagnosed) Insulin Dosing, Diabetic Medication: Has order for SS insulin and patients own Ozempic (not brought in - due on Thursday per patient) Cardiac Review Cardiac Review: Troponin I 8 ng/L (<or=76) 03/21/25 20:10 BP, HR, EF%: Reviewed (BP and HR WNL) List meds needing interventions: Has orders for chlorthalidone 25mg daily, losartan 100mg daily and propranolol LA 240mg daily QTc Review QTc: Reviewed (454 from 03/21/25) IV to PO Switch IV Medications: Reviewed (phenobarbital) Home Meds Home Med List reviewed: Intervened Relevent Home Meds Not ordered & why?: albuterol (PRN), allopurinol, colchicine and melatonin (PRN) Reached out to provider about allopurinol and colchicine - waiting to hear back Changed Ozempic to patients own order and reached out to nurse to see if this could be be brought in. Patient states he uses on Mondays and will have brought in if still here. Current Meds Current Medication Order Review: Intervened Comments: Discontinued duplicate glucose oral gel order Changed IV ED acecss order Changed omeprazole timing from 829 to 729 per pharmacy protocol On phenobarbital for alcohol withdrawal SS: 1233mg HS: 1644mg CIWA 0 @1338 Total dose so far: 500mg (loading dose) - has not required any PRN doses
[2025-03-22] MEDS: POTASSIUM CHLORIDE/0.9% NACL 1,000 ML 100 MEQ IV ×2 (13:54→23:20)
--- NOTE | 2025-03-22 18:39 | PGE_ITS ---
Date of Service Date of service: 03/22/25 Time of Service: 14:00 Assessment and Plan Assessment and plan (1) Hyperglycemia without ketosis: Status: Acute Assessment and plan: Hyperglycemic on presentation 533 Patient had been started on ozempic. This degree of hyperglycemia was not expected. Intermittent cessation of EtOH possibly contributing Insulin given in ED and on the floor Sliding scale on the floor Starting metformin, expect to DC only on oral & GLP-1 (2) Alcohol use disorder: Status: Acute Assessment and plan: - Patient reports drinking 6x 12 ounce beers a night, and having history of withdrawals with tremors but without seizure, last drink was 9 PM on 03/20/2025 - Given history of withdrawal and high risk during this hospitalization, patient will have loading dose of phenobarbital, will check CIWA and give additional doses of phenobarbital as needed Mar 22 CIWA scores zero. Note ozempic has noted supportive effect on EtOH cessation. (3) VALORIE (acute kidney injury): Status: Acute Assessment and plan: Creatinine baseline not available, 3.1 on arrival, fluctuating Mar 22 creatinine 2.8 Continue monitoring (4) Hypokalemia: Status: Acute Assessment and plan: - Potassium 3.2 in the emergency department, fluctuating Continue repleting (5) Pseudohyponatremia: Status: Acute Assessment and plan: Resolved (6) HTN (hypertension): Status: Chronic Assessment and plan: - Continue home chlorthalidone and losartan Subjective Subjective Interval history since last seen: Mr Avalos is comfortable up in a chair. He is overwhelmed with his new diabetes diagnosis on top of fresh sobriety from alcohol. He is hoping to get support for [facility]. He is hoping to not need insulin. Exam Narrative Exam Narrative: General: This is a very pleasant, obese man in no acute distress HEENT: Normocephalic, atraumatic. Heavy cárdenas. Baseball hat CV: RRR Resp: CTAB Abd: NTND MSK: voluntary motion x4 Neuro: Awake, alert, no focal deficits Objective Last Vital Signs Temp 36.9 C 03/22/25 17:51 Pulse 74 03/22/25 18:19 Resp 25 H 03/22/25 18:19 BP 112/70 03/22/25 18:19 Pulse Ox 98 03/22/25 08:00 Laboratory Results - last 24 hr 03/21/25 03/22/25 03/22/25 20:10 00:16 05:39 WBC 9.66 RBC 4.98 Hgb 15.4 Hct 43.3 MCV 87 MCH 30.9 MCHC 35.6 RDW 11.4 L Plt Count 253 MPV 12.3 H Sodium 130 L 126 L 131 L Potassium 3.0 L 3.0 L 2.6 L* Chloride 92 L 89 L 91 L Carbon Dioxide 25.5 25.6 31.4 Anion Gap 12.5 H 11.4 H 8.6 BUN 39 H 43 H 39 H Creatinine 2.6 H 3.2 H 2.8 H Est GFR (CKD-EPI 2020) 30.81 24.01 28.19 Glucose 235 H 445 H 324 H Calcium 10.0 9.3 9.8 Magnesium 2.7 H Total Bilirubin 0.5 AST 118 H ALT 137 H Alkaline Phosphatase 111 Troponin I 8 Total Protein 8.3 H Albumin 4.0 PAWSS Have you Been Recently Intoxicated or Drunk Within the Last 30 days?: Yes Have you Ever Experienced Previous Episodes of Alcohol Withdrawal?: Yes Have you ever Experienced Withdrawal Seizures?: No Have you ever Experienced Delirium Tremens(DT)s?: Yes Have you ever undergone Alcohol Rehabilitation Treatment (i.e, inpt ot outpatient treatment programs)?: Yes Have you ever Experienced Blackouts?: Yes Have you ever Combined Alcohol with other Downers within the last 90 days?: No Have you ever Combined Alcohol with any other Substance of Abuse during the last 90 days?: No Evidence of Increased Autonomic Activity (i.e. HR>120, tremor, sweating, agitation, nausea)?: No Result: 5 Time Spent with Patient Time Spent with Patient: 25-34 minutes Time was spent: preparing to see the patient(eg.review tests), obtaining and/or reviewing separately otained hiistory, ordering medications,tests, procedures, referring, communicating with other health healthcare representative, indepentently interpreting results, counseling the patient and care coordination
[2025-03-22] MEDS: Nicotine 4 MG GUM CH ×2 (19:36→20:56)
[2025-03-22] MEDS: Gabapentin 400 MG CAP PO (19:37)
[2025-03-22] MEDS: QUEtiapine 50 MG TAB PO (20:55)
--- NOTE | 2025-03-22 22:13 | W.PC.ACHO ---
Registration Status: ADM IN Primary Language: Preferred Language: ED Information & Data Chief Complaint Diabetes 03/21/25 16:33 Triage Note Dizziness, confusion, chest 03/21/25 15:57 pressure with increased fatigue was told by PCP BS over 500 to go to the nearest ED. Cut ETOH consumption in 1/2 over the past 2 weeks. BS in tr Most Recent Vital Signs Temperature 36 C L 03/22/25 20:00 Temperature Source Temporal Artery Scan 03/22/25 20:00 Pulse 70 03/22/25 20:00 Pulse 78 03/22/25 20:00 Respiratory Rate 22 03/22/25 20:00 Respiratory Effort Normal 03/21/25 19:00 Respiratory Depth Normal 03/21/25 19:00 Respiratory Pattern Normal 03/21/25 19:00 Blood Pressure 97/75 L 03/22/25 20:00 Blood Pressure Mean 82 03/22/25 20:00 Blood Pressure Position Supine 03/21/25 19:00 Pulse Oximetry 95 03/22/25 20:00 Oxygen Delivery Method Room Air 03/22/25 20:00 Oxygen Flow Rate 0 03/22/25 20:00 Pain Level 0 03/22/25 19:03 Comment right arm 03/22/25 02:57 Allergies No Known Allergies Allergy (Unverified 03/21/25 16:02) Active Medications Generic Name Dose Route Start Last Admin Trade Name Freq PRN Reason Stop Dose Admin Chlorthalidone 25 mg 03/22/25 08:30 03/22/25 08:20 Chlorthalidone 25 Mg Tab PO 25 mg DAILY KORI Administration Folic Acid 1 mg 03/22/25 08:30 03/22/25 08:22 Folic Acid 1 Mg Tab PO 03/28/25 08:31 1 mg QAM KOIR Administration Gabapentin 400 mg 03/22/25 20:00 03/22/25 19:37 Gabapentin 400 Mg Cap PO 400 mg TID KORI Administration Potassium Chloride/Sodium Chloride 1,000 mls @ 100 mls/hr 03/22/25 14:00 03/22/25 13:54 Kcl 40 Meq/Ns IV 100 mls/hr INFUSION KORI Administration Insulin Aspart 0 units 03/21/25 22:00 03/22/25 20:55 Insulin Aspart 300 Units/3 Ml Pen SC 9 units 0800,1200,1700,2200 KORI Administration Protocol Losartan Potassium 100 mg 03/22/25 08:30 03/22/25 08:21 Losartan 50 Mg Tab PO 100 mg DAILY KORI Administration Multivitamins 1 tab 03/22/25 08:30 03/22/25 08:22 Multivitamin Tab PO 03/28/25 08:31 1 tab QAM KORI Administration Nicotine 4 mg 03/22/25 19:01 03/22/25 20:56 Nicotine 4 Mg Gum CH 4 mg Q2H PRN PRN Administration Omeprazole 20 mg 03/22/25 07:30 03/22/25 08:25 Omeprazole 20 Mg Capcr PO 20 mg DAILY@0730 KORI Administration Propranolol HCl 240 mg 03/22/25 08:30 03/22/25 08:43 Propranolol 80 Mg Capcr PO 240 mg DAILY KORI Administration Quetiapine Fumarate 50 mg 03/22/25 07:41 03/22/25 20:55 Quetiapine 50 Mg Tab PO 50 mg HS PRN PRN Administration SLEEP Sodium Chloride 0 ml 03/21/25 20:00 03/22/25 08:23 Normal Saline Flush 10 Ml Syr IVP 20 ml BID KORI Administration Thiamine HCl 100 mg 03/22/25 08:30 03/22/25 08:23 Thiamine 100 Mg Tab PO 03/28/25 08:31 100 mg QAM KORI Administration IV IV Catheter Type [Right Saline Lock Forearm] IV Catheter Type [Left Peripheral IV Antecubital] IV Catheter Gauge [Right 20 Forearm] IV Catheter Gauge [Left 20 Antecubital] Diagnostics 03/22/25 03/22/25 Range/Units 05:39 00:16 WBC 9.66 (4.4-10.8) 10^3/uL RBC 4.98 (4.36-5.78) 10^6/uL Hgb 15.4 (13.5-17.5) g/dL Hct 43.3 (40.0-50.0) % MCV 87 (80-95) fL MCH 30.9 (27.0-33.0) pg MCHC 35.6 (32.0-36.0) % RDW 11.4 L (11.8-14.1) % Plt Count 253 (130-400) 10^3/uL MPV 12.3 H (8.0-11.0) fL Sodium 131 L 126 L (136-145) mmol/L Potassium 2.6 L* 3.0 L (3.5-5.1) mmol/L Chloride 91 L 89 L (98-107) mmol/L Carbon Dioxide 31.4 25.6 (21.0-32.0) mmol/L Anion Gap 8.6 11.4 H (3-11) mmol/L BUN 39 H 43 H (7-18) mg/dL Creatinine 2.8 H 3.2 H (0.70-1.30) mg/dL Est GFR (CKD-EPI 2020) 28.19 24.01 (mL/min/1.73m2) Glucose 324 H 445 H (74-106) mg/dL Calcium 9.8 9.3 (8.5-10.1) mg/dL Magnesium 2.7 H (1.8-2.4) mg/dL Total Bilirubin 0.5 (0.2-1.0) mg/dL AST 118 H (15-37) U/L ALT 137 H (16-63) U/L Alkaline Phosphatase 111 (46-116) U/L Total Protein 8.3 H (6.4-8.2) g/dL Albumin 4.0 (3.4-5.0) g/dL [id number] Documentation Fingerstick Glucose Start: 03/21/25 16:01 Freq: Status: Complete Protocol: Activity Type Activity Date Activity User E-sign Co-sign Detail Recorded Client Recorded Date Recorded By Document 03/21/25 17:57 BKG DAEMON [id number] 03/21/25 17:58 BKG DAEMON(2) Fingerstick Glucose Start: 03/21/25 18:05 Freq: AC & HS Status: Active Protocol: Activity Type Activity Date Activity User E-sign Co-sign Detail Recorded Client Recorded Date Recorded By Document 03/22/25 20:54 BKG DAEMON(3) [id number] 03/22/25 21:00 BKG DAEMON(4) Intake and Output - 24 Hour Total 03/21/25 15:50 thru 03/22/25 19:05 Intake Total 4518.8461 Output Total 4040 Balance 478.8461 Weight 136 kg Intake: IV 2418.8461 Oral 2100 Output: Urine 4040 Other: Urine Color Pale Urine Appearance Clear Urine Odor None Comment independent to bathroom after admit- pt has wanted privacy Stool Size Small Stool Characteristics Liquid Falls Risk Assessment History of Falls No History 03/21/25 19:00 Contributing Factors No Factors 03/21/25 19:00 Ambulatory Aids Independent 03/21/25 19:00 Tubes/Lines None 03/21/25 19:00 Gait Evaluation No gait disturbance 03/21/25 19:00 Cognition No cognitive impairment 03/21/25 19:00 Fall Total Score 0 03/21/25 19:00 Level of Risk Standard/Low Risk 03/21/25 19:00 Problems (Last Reviewed 03/21/25 @ 17:27 by Danny Jennings MD) Alcohol use disorder (Acute) HTN (hypertension) (Chronic) Pseudohyponatremia (Acute) Hypokalemia (Acute) VALORIE (acute kidney injury) (Acute) Hyperglycemia without ketosis (Acute) v v v v v v v v v Sending and/or Receiving Nurses: Please use comment section below to note any information pertinent to the patient hand-off not included above. Information / Comments: Report received from: Kwasi BURT
[2025-03-23 03:17] VITALS: BP 85/45; PULSE 66; RESP 18; TEMP 36.4; O2SAT 97
[2025-03-23 03:39] VITALS: BP 95/60
[2025-03-23 06:49] LABS: HCT 37.9 % (40.0-50.0); HGB 13.5 g/dL (13.5-17.5); MCH 31.1 pg (27.0-33.0); MCHC 35.6 % (32.0-36.0); MCV 87 fL (80-95); MPV 11.4 fL (8.0-11.0); Platelet Count 166 10^3/uL (130-400); RBC 4.34 10^6/uL (4.36-5.78); RDW 11.3 % (11.8-14.1); RDW-SD 36.5 fL; WBC 5.94 10^3/uL (4.4-10.8)
[2025-03-23 07:18] VITALS: BP 120/86; PULSE 77; RESP 20; TEMP 36.6; O2SAT 98
[2025-03-23] MEDS: Losartan 50 MG TAB 100 MG PO (07:48)
[2025-03-23] MEDS: Omeprazole 20 MG CAPCR PO (07:49)
[2025-03-23] MEDS: Chlorthalidone 25 MG TAB PO (07:49)
[2025-03-23] MEDS: Thiamine 100 MG TAB PO (07:49)
[2025-03-23] MEDS: Gabapentin 400 MG CAP PO (07:49)
[2025-03-23] MEDS: Folic Acid 1 MG TAB PO (07:50)
[2025-03-23] MEDS: Multivitamin TAB 1 TAB PO (07:50)
[2025-03-23] MEDS: Normal Saline Flush 10 ML SYR IVP ×2 (07:50→07:52)
[2025-03-23] MEDS: Insulin Aspart 300 UNITS/3 ML PEN SC ×2 (07:57→12:09)
[2025-03-23] MEDS: Propranolol 80 MG CAPCR 240 MG PO (08:21)
[2025-03-23] MEDS: Nicotine 4 MG GUM CH (08:24)
--- NOTE | 2025-03-23 08:43 | PDOC.CMDIS ---
Date of service: 03/23/25 Time of Service: 08:43 LACE Index Scoring Tool Questions: Length of Stay (in days): 2 Comorbidities: Diabetes w/o Complication E.D. Visits: 1 Care Management Discharge Plan Reason for Hospitalization: [facility] Discharge Plan: Mckay is being discharged home via private ride. The patient will [facility] with [facility] and continue following the established plan of care. Patient plans to follow up with community sobriety supports local to [place] and is currently connected with [facility]. Patient/Family Education Needs: Review discharge instructions and plan to follow up after discharge. Discuss ask me three.
[2025-03-23 08:52] LABS: ALT 138 U/L (16-63); AST 125 U/L (15-37); Albumin 3.7 g/dL (3.4-5.0); Alkaline Phosphatase 99 U/L (46-116); Anion Gap 13.5 mmol/L (3-11); BUN 30 mg/dL (7-18); Bilirubin, Total 0.5 mg/dL (0.2-1.0); CO2 26.5 mmol/L (21.0-32.0); Calcium 9.6 mg/dL (8.5-10.1); Chloride 98 mmol/L (98-107); Estimated GFR 47.90 (mL/min/1.73m2); Glucose 273 mg/dL (74-106); Magnesium 2.5 mg/dL (1.8-2.4); Potassium 3.5 mmol/L (3.5-5.1); Sodium 138 mmol/L (136-145); Total Protein 7.6 g/dL (6.4-8.2)
[2025-03-23] MEDS: metFORMIN 500 MG TAB PO (09:50)
[2025-03-23 11:10] VITALS: BP 119/83; PULSE 80; RESP 22; TEMP 36.8; O2SAT 95
--- NOTE | 2025-03-23 13:45 | W.DIABETESNO ---
Date of service: 03/23/25 Time of Service: 13:45 Diabetes Note Reason for Visit: follow up inpatient diabetes ed NOTE: was able to get a free dexcom GY CGM on artie this morning as there most likely will be some lag time before he is able to get a glucometer immediately after discharge. Fasting glucose 273 today, 245 at breakfst and 312 at lunch. at my visit today near 130 CGM was reading 330's. Started metformin this morning and has been on corrective insulin QID. As artie reports hyperglycemia sx's like tingling in feet over the last many months, would recommend current A1C as I feel this might be signficantly high. Would recommend basal insulin at 20u and consider adjusting to moderate sliding scale. If A1C >9 would consider discharging on basal insulin and oral metformin with follow up with PCP to adjust. Time Spent in Nutritional Counseling and Treatment: 10 min
--- NOTE | 2025-03-23 13:57 | W.PM.DS.N ---
Date of service: 03/23/25 Time of Service: 13:00 DS: Diagnosis Discharge Diagnosis (1) Hyperglycemia without ketosis: Status: Acute Asessment and Plan: Hyperglycemic on presentation 533 Patient had been started on ozempic. This degree of hyperglycemia was not expected. Intermittent cessation of EtOH possibly contributing Insulin given in ED and on the floor Sliding scale on the floor Starting metformin, expect to DC only on oral & GLP-1 (2) Alcohol use disorder: Status: Acute Asessment and Plan: - Patient reports drinking 6x 12 ounce beers a night, and having history of withdrawals with tremors but without seizure, last drink was 9 PM on 03/20/2025 - Given history of withdrawal and high risk during this hospitalization, patient will have loading dose of phenobarbital, will check CIWA and give additional doses of phenobarbital as needed Mar 22 CIWA scores zero. Note ozempic has noted supportive effect on EtOH cessation. (3) VALORIE (acute kidney injury): Status: Resolved Asessment and Plan: Creatinine baseline not available, 3.1 on arrival, fluctuating Mar 22 creatinine 2.8 Continue monitoring (4) Hypokalemia: Status: Resolved Asessment and Plan: - Potassium 3.2 in the emergency department, fluctuating Continue repleting (5) Pseudohyponatremia: Status: Resolved Asessment and Plan: Resolved (6) HTN (hypertension): Status: Chronic Asessment and Plan: - Continue home chlorthalidone and losartan Discharge Plan Disposition Patient Disposition: Home Condition: Fair Discharge Details Reason For Visit: [facility] Admit Date/Time: 03/21/25 17:38 Admit Provider: Jerson Sinha Attending Provider: Jerson Sinha Primary Care Provider: DULCE ERICKSON Hospital Course Hospital Course: Mckay Avalos is a 39 year old man presenting March 21, sent in from [place] [facility] for hyperglycemia over 500. He had recently been diagnosed with diabetes with A1C reportedly 6.8, started on ozempic. He is actively working to stop EtOH with a lengthy history of dependence. In the ED he was found to have nonketotic hyperglycemia with BG 533, and VALORIE with creatinine 3. He was admitted for insulin treatment which has resulted in blood glucose levels within normal levels. He did not develop symptoms of alcohol withdrawal. He is being discharged on metformin and may continue ozempic as well. He plans Home Meds and New Rx's Prescriptions: New metformin 500 mg tablet 500 mg PO BIDWMEAL Qty: 60 0RF Continued Ozempic 0.25 mg or 0.5 mg(2 mg/1.5 mL) pen injector 0.25 mg subcut QWEEK Rx Instructions: for 4 weeks losartan [Cozaar] 100 mg tablet 100 mg PO DAILY propranolol [Inderal LA] 120 mg capsule,extended release 24 hr 240 mg PO DAILY gabapentin 800 mg tablet 800 mg PO TID omeprazole 20 mg capsule,delayed release(DR/EC) 20 mg PO DAILY allopurinol 200 mg tablet 200 mg PO DAILY albuterol 90 mcg/actuation aerosol inhalation PRN PRN colchicine 0.6 mg capsule 0.6 mg PO 4XW chlorthalidone 25 mg tablet 25 mg PO DAILY No Action melatonin 1 mg 1 mg PO HS PRN quetiapine [Seroquel] 25 mg tablet 50 mg PO QHS PRN (Reason: sleep) Discharge Instructions Stand Alone Forms: Nursing Discharge Form Referrals: DULCE ERICKSON [Primary Care Provider, Medicine] Referral Note: Your PCP office will call you to set up a follow up appointment. Activity:: Activity as Tolerated Equipment/Supplies:: Blood Glucose Monitor Diet:: low carb per manager air Discharge Orders Discharge Orders: Discharge Order (Routine); Ordered 03/23/25 Ordered By: Jerson Sinha Discharge Data Discharge Date/Time-TO BE ENTERED AT DEPARTURE: 03/23/25 14:23 DS: Summary Time Spent with Patient providing and/or coordinating discharge services: Less than 30 minutes Status at Discharge Functional status at discharge: independent ambulation Overall status at discharge: patient is back to baseline Mental Status: mental status grossly normal Speech and Movement: speech and movement normal Mood: congruent mood Affect: normal affect Exam Narrative Exam Narrative: General: This is a very pleasant, obese man in no acute distress HEENT: Normocephalic, atraumatic. Heavy cárdenas. Baseball hat CV: RRR Resp: CTAB Abd: NTND MSK: voluntary motion x4 Neuro: Awake, alert, no focal deficits Psych Mental Status: mental status grossly normal Speech and Movement: speech and movement normal Mood: congruent mood Affect: normal affect DS: Data Vitals/I&O Vitals and I&O: Vital Signs Temperature 36.8 C 03/23/25 11:10 Temperature Source Temporal Artery Scan 08/14/25 11:10 Pulse 80 03/23/25 11:10 Pulse 78 03/22/25 20:00 Respiratory Rate 22 03/23/25 11:10 Respiratory Effort Normal 03/21/25 19:00 Respiratory Depth Normal 03/21/25 19:00 Respiratory Pattern Normal 03/21/25 19:00 Blood Pressure 119/83 03/23/25 11:10 Blood Pressure Mean 95 03/23/25 11:10 Blood Pressure Position Supine 03/21/25 19:00 Pulse Oximetry 95 03/23/25 11:10 Oxygen Delivery Method Room Air 03/23/25 11:10 Oxygen Flow Rate 0 03/23/25 11:10 Pain Level 3 03/23/25 11:10 Comment right arm 03/22/25 02:57 Intake & Output 03/22/25 03/23/25 03/23/25 23:59 11:59 23:59 Intake Total 2478.333 / 3800.6406 1000 / 1000 Output Total 500 / 3440 Balance 1978.333 / 360.6406 1000 / 1000 Intake: IV 1198.333 / 2300.6406 1000 / 1000 Oral 1280 / 1500 Output: Urine 500 / 3440 Other: Urine Color Pale Urine Appearance Clear Comment independent to bathroom after admit- pt has wanted privacy Stool Size Small Stool Characteristics Liquid Data Completed and Pending Labs on day of discharge: Labs from last 24 hours 03/23/25 05:50 WBC 5.94 RBC 4.34 L Hgb 13.5 Hct 37.9 L MCV 87 MCH 31.1 MCHC 35.6 RDW 11.3 L Plt Count 166 MPV 11.4 H Sodium 138 Potassium 3.5 Chloride 98 Carbon Dioxide 26.5 Anion Gap 13.5 H BUN 30 H Creatinine 1.8 H D Est GFR (CKD-EPI 2020) 47.90 Glucose 273 H Calcium 9.6 Magnesium 2.5 H Total Bilirubin 0.5 AST 125 H ALT 138 H Alkaline Phosphatase 99 Total Protein 7.6 Albumin 3.7 PFSH All Active Problems (Updated 03/24/25 @ 00:02 by BEBE CALVERT) Alcohol use disorder (Acute) HTN (hypertension) (Chronic) Hyperglycemia without ketosis (Acute) Hyperglycemia due to type 2 diabetes mellitus (Acute) Social History Smoking/Tobacco Use Status: Current every day Tobacco Type: cigarettes Smoking risk assessment performed?: Yes Alcohol Intake: current Alcohol Intake frequency: 3 or more drinks per day Drug use: Daily Substance use type: marijuana Housing: apartment Do you feel safe at home: Yes Do you feel safe in your relationship?: Yes Time Spent with Patient Time Spent with Patient: <45 minutes Time was spent: preparing to see the patient(eg.review tests), obtaining and/or reviewing separately otained hiistory, ordering medications,tests, procedures, referring, communicating with other health child day care teacher, indepentently interpreting results, counseling the patient and care coordination
== END 2025-03-23 14:23 | disposition home or self-care (01) | DRG 638 ==
LOC: ER 17:51 → ICU 18:59 → MS 03-22 19:16
PROVIDERS: Admitting Provider Family Medicine; Emergency Provider Emergency Medicine Emergency Medical Services; PCP Internal Medicine; Responsible Provider Family Medicine; Visit Provider Family Medicine
DX: E11.65 Type 2 diabetes mellitus with hyperglycemia (principal); E87.1 Hypo-osmolality and hyponatremia; N17.9 Acute kidney failure, unspecified; E87.6 Hypokalemia; N18.9 Chronic kidney disease, unspecified; I12.9 Hypertensive chronic kidney disease with stage 1 through stage 4 chronic kidney disease, or unspecified chronic kidney disease; Z79.85 Long-term (current) use of injectable non-insulin antidiabetic drugs; F10.90 Alcohol use, unspecified, uncomplicated; F17.210 Nicotine dependence, cigarettes, uncomplicated
CPT/HCPCS: 00123; 36415; 36416; 80048; 80053; 82962; 85027; 93005; 96361; 96374; 99285; 81003; 81015; 83735; 84484; 85025; 93010; 99223; 99232; 99238; J1815; J2560

== ENCOUNTER 2025-06-26 16:55 | Emergency (ER) | payer OTHER, SELFPAY ==
[2025-06-26 17:06] VITALS: BP 162/110; PULSE 117; RESP 18; TEMP 36.6; O2SAT 93
== END 2025-06-26 17:48 | disposition short-term general hospital (02) ==
LOC: ER 17:09
PROVIDERS: Emergency Provider Physician Assistant; PCP Internal Medicine
DX: F10.930 Alcohol use, unspecified with withdrawal, uncomplicated (principal); R45.851 Suicidal ideations; R45.850 Homicidal ideations; R00.0 Tachycardia, unspecified; I10 Essential (primary) hypertension; R25.1 Tremor, unspecified
CPT/HCPCS: 99291

== ENCOUNTER 2025-06-26 21:52 | Inpatient (IN) | payer OTHER, SELFPAY ==
[2025-06-26] VITALS (41 sets, daily range): BP systolic 160; BP diastolic 103; PULSE 103–126; RESP 13–37; TEMP 37.1; O2SAT 93–98
--- NOTE | 2025-06-26 22:03 | W.ED.GENAD ---
Discharge Plan Disposition Patient Disposition: Admit to [facility] Condition: Serious Discharge Details Clinical Impression: Alcohol withdrawal, Suicidal risk, Homicidal thoughts Primary Care Provider: DULCE ERICKSON ED Provider: Andres Guzmán [place] [facility] Rx's Prescriptions: No Action Ozempic 0.25 mg or 0.5 mg(2 mg/1.5 mL) pen injector 0.25 mg subcut QWEEK Rx Instructions: for 4 weeks losartan [Cozaar] 100 mg tablet 100 mg PO DAILY propranolol [Inderal LA] 120 mg capsule,extended release 24 hr 240 mg PO DAILY gabapentin 800 mg tablet 800 mg PO TID omeprazole 20 mg capsule,delayed release(DR/EC) 20 mg PO DAILY allopurinol 200 mg tablet 200 mg PO DAILY albuterol 90 mcg/actuation aerosol inhalation PRN PRN colchicine 0.6 mg capsule 0.6 mg PO 4XW chlorthalidone 25 mg tablet 25 mg PO DAILY quetiapine [Seroquel] 25 mg tablet 50 mg PO QHS PRN (Reason: sleep) metformin 500 mg tablet 500 mg PO BIDWMEAL Qty: 60 0RF HPI General Mode of arrival: ambulatory. Date/Time Provider Initiated Documentation: 06/26/25 22:00. Limitations to Documentation: no limitations. Information obtained by: patient, police, RN/MD and old records reviewed. HPI Narrative: Patient presents to ED with police for evaluation of alcohol withdrawal. Patient had been here earlier in the day looking for detox. However, he drank a whole bottle of wine in the parking lot to keep himself from going into withdrawal. He was informed that if he was not actively withdrawing he could not be treated/admitted for detox. He apparently eloped from the ED, police were notified. He is from the [place] area. Apparently went home where he drank some more then decided he was going to go to the [facility] for treatment. He called 911 to ask how far he would have to drive before he could plant puller and have an ambulance pick him up to take him the rest of the way. Dispatch notified [facility] and patient was pulled over by [facility] and taken into custody. He was found to have two loaded guns in the vehicle. He told the officers that he thought about just opening fire on them but decided not to. He made multiple threats of killing himself and other veiled threats of shooting up the police if they served a warrant on him. He has been processed and has a notice to appear, police brought him here at his request because now he is withdrawing. Patient tells me that he must drink every 2 - 4 hours to prevent from being in withdrawal. He does not ever sleep a full night because of this. He has not ate in 30 hours and has not had a cigarette in 10. He is trying to down play the threats he made to police. He has no acute physical complaints, just chronic pain complaints and reports not checking his sugar in many days. Related Data Home Medications ?Medication ?Instructions ?Recorded ?Confirmed albuterol 90 mcg/actuation aerosol mcg inhalation PRN PRN 03/21/25 inhaler allopurinol 200 mg tablet 200 mg PO DAILY 03/21/25 06/26/25 chlorthalidone 25 mg tablet 25 mg PO DAILY 03/21/25 06/26/25 colchicine 0.6 mg capsule 0.6 mg PO 4XW 03/21/25 06/26/25 gabapentin 800 mg tablet 800 mg PO TID 03/21/25 06/26/25 losartan 100 mg tablet (Cozaar) 100 mg PO DAILY 03/21/25 06/26/25 omeprazole 20 mg capsule,delayed 20 mg PO DAILY 03/21/25 06/26/25 release propranolol 120 mg capsule,24 240 mg PO DAILY 03/21/25 06/26/25 hr,extended release (Inderal LA) quetiapine 25 mg tablet (Seroquel) 50 mg PO QHS PRN sleep 03/21/25 06/26/25 semaglutide 0.25 mg or 0.5 mg (2 0.25 mg subcut QWEEK 03/21/25 06/26/25 mg/1.5 mL) subcutaneous pen injector (Ozempic) metformin 500 mg tablet 500 mg PO BIDWMEAL #60 tabs 03/23/25 06/26/25 Previous Rx's ?Medication ?Instructions ?Recorded metformin 500 mg tablet 500 mg PO BIDWMEAL #60 tabs 03/23/25 Allergies Allergy/AdvReac Type Severity Reaction Status Date / Time walnut Allergy Anaphylaxis Verified 06/26/25 22:04 General Stated Complaint: ETOHWithdr TWILA: 3 Exam Narrative Exam Narrative: Const: WDWN male in NAD. VS per triage. HEENT: NC/AT. Normal facial exam. Neck: Supple. Trachea midline. Lungs: Normal respiratory effort. Lungs with few wheezes. Cor: RRR without murmur. Good radial pulses. GI: Soft/ND/NT. Neuro: A+O x 3. Normal speech, mentation. Marked tremor of hands. Cranial nerves II - XII grossly intact. No gross motor or sensory deficit. Psych: previously made threats to police regarding shooting them as well as killing himself Course Vital Signs Vital signs: Vital Signs Temperature 98.7 F 06/26/25 21:56 Pulse 110 H 06/26/25 21:56 Respiratory Rate 18 06/26/25 21:56 Blood Pressure 160/103 H 06/26/25 21:56 Pulse Oximetry 98 06/26/25 21:56 Temperature 98.7 F 06/26/25 21:56 Temperature Source Oral 06/26/25 21:56 Pulse 110 H 06/26/25 21:56 Respiratory Rate 18 06/26/25 21:56 Blood Pressure 160/103 H 06/26/25 21:56 Blood Pressure Position Sitting 06/26/25 21:56 Pulse Oximetry 98 06/26/25 21:56 Oxygen Delivery Method Room Air 06/26/25 21:56 Oxygen Flow Rate 0 06/26/25 21:56 Pain Level 0 06/26/25 21:56 Medical Decision Making Patient presenting to ED clearly in alcohol withdrawal with tachycardia, hypertension, severe tremor involving upper extremities. He will need a psychiatric evaluation and as such is placed on hold but requires medical admission for management of his alcohol withdrawal prior to mental health/psychiatric evaluation. I have made this known to the patient. IV will be established. Laboratory studies obtained. Will give him IV thiamine as well as begin phenobarbital load for withdrawal. He is reporting that on an average day, if he is only drinking beer, he will have a case of 16 ounce cans. EKG ordered. CPSO ordered. Will plan admission to ICU after initial stabilization in the ED. 23:45 - Patient remains calm and cooperative. Labs are remarkably good. Potassium and magnesium a little low, oral replaced. AST/ALT only minimally elevated. Hgb is normal. Alcohol was 81, acetaminophen and aspirin negative. EKG is normal. Glucose normal and venous pH is alkalotic so no DKA. Getting first dose of phenobarb load and will admit to hospitalist service, ICU level of care. Medical Records Medical records reviewed: Yes I reviewed the patient's medical records. Medical records narrative: Admitted here in March with hyperglycemia and withdrawal Lab Data Lab results reviewed: Yes I reviewed the patient's lab results. Lab results narrative: see MDM ECG Data Attestation: I personally reviewed and interpreted this ECG (s) as follows: Prior ECG tracings: available for review Interpretation: see MDM/EKG Critical Care Time Critical Care Time Critical Care Time: Yes Total Critical Care Time: 60 Attestation: Upon my evaluation, this patient had a high probability of imminent or life-threatening deterioration, which required my direct attention, intervention, and personal management. I have personally provided 60 minutes of critical care time exclusive of time spent on separately billable procedures. Time includes monitoring for potential decompensation, ordering of tests and medications, review of laboratory and radiology results, discussion with consultants and documentation . Interventions were performed as documented above in procedures. PFSH All Active Problems (Updated 06/26/25 @ 23:49 by Andres Guzmán MD) Homicidal thoughts (Acute) Suicidal risk (Acute) Alcohol withdrawal (Acute) Hyperglycemia without ketosis (Acute) Hyperglycemia due to type 2 diabetes mellitus (Acute) Medical History (Updated 06/26/25 @ 23:49 by Andres Guzmán MD) Diabetes mellitus Gout Alcohol use disorder HTN (hypertension) Social History Smoking/Tobacco Use Status: Current every day Tobacco Type: cigarettes, e-cigarettes and smokeless tobacco Smoking risk assessment performed?: Yes Alcohol Intake: current Alcohol Intake frequency: 3 or more drinks per day Alcohol type: beer, wine and hard liquor Drug use: Daily Substance use type: marijuana Housing: apartment Do you feel safe at home: Yes Do you feel safe in your relationship?: Yes
--- NOTE | 2025-06-26 22:15 | RT.EKG_ITS ---
APPROVED REPORT Exam: Resting ECG Reason for Exam: etoh withdrawal Patient Location: E HR:97 bpm ECG Measurements Heart Rate 97 AXIS NM 120 P 38 QRSd 92 QRS 72 QT 353 T 67 QTc 450 Conclusion Sinus rhythm...normal P axis, V-rate 60- 99 Normal [employer]/Interval Normal ST Lead error in aVL
--- NOTE | 2025-06-26 23:01 | W.ED.GENAD ---
Discharge Plan Discharge Details Chief Complaint: ETOHWithdr Primary Care Provider: UDLCE ERICKSON ED Provider: Andres Guzmán [place] Meds and New Rx's Prescriptions: No Action Ozempic 0.25 mg or 0.5 mg(2 mg/1.5 mL) pen injector 0.25 mg subcut QWEEK Rx Instructions: for 4 weeks losartan [Cozaar] 100 mg tablet 100 mg PO DAILY propranolol [Inderal LA] 120 mg capsule,extended release 24 hr 240 mg PO DAILY gabapentin 800 mg tablet 800 mg PO TID omeprazole 20 mg capsule,delayed release(DR/EC) 20 mg PO DAILY allopurinol 200 mg tablet 200 mg PO DAILY albuterol 90 mcg/actuation aerosol inhalation PRN PRN colchicine 0.6 mg capsule 0.6 mg PO 4XW chlorthalidone 25 mg tablet 25 mg PO DAILY quetiapine [Seroquel] 25 mg tablet 50 mg PO QHS PRN (Reason: sleep) metformin 500 mg tablet 500 mg PO BIDWMEAL Qty: 60 0RF HPI General Mode of arrival: ambulatory. Date/Time Provider Initiated Documentation: 06/26/25 22:00. Limitations to Documentation: no limitations. Information obtained by: patient, police, RN/MD and old records reviewed. HPI Narrative: This 39-year-old male with history of alcoholism and diabetes presents with report of alcohol withdrawal. He states he has been drinking since he was 18 years old and has a history of alcohol withdrawal seizures. He states that his last drink was at 7:00, he drank an entire bottle of wine on the way down to the hospital for evaluation. He states he needs detox so that he can go to a recovery center. He states he drinks 1/2 gallon of vodka daily. He denies any suicidal or homicidal ideation. He states that his last inpatient hospitalization for alcoholism was in 2022. He states he resides in [facility]. He denies auditory visual hallucination but states he feels anxious. He had vodka this morning but did not drink again and felt well with some cough, his arrival of the hospital. Related Data Home Medications ?Medication ?Instructions ?Recorded ?Confirmed albuterol 90 mcg/actuation aerosol mcg inhalation PRN PRN 03/21/25 inhaler allopurinol 200 mg tablet 200 mg PO DAILY 03/21/25 06/26/25 chlorthalidone 25 mg tablet 25 mg PO DAILY 03/21/25 06/26/25 colchicine 0.6 mg capsule 0.6 mg PO 4XW 03/21/25 06/26/25 gabapentin 800 mg tablet 800 mg PO TID 03/21/25 06/26/25 losartan 100 mg tablet (Cozaar) 100 mg PO DAILY 03/21/25 06/26/25 omeprazole 20 mg capsule,delayed 20 mg PO DAILY 03/21/25 06/26/25 release propranolol 120 mg capsule,24 240 mg PO DAILY 03/21/25 06/26/25 hr,extended release (Inderal LA) quetiapine 25 mg tablet (Seroquel) 50 mg PO QHS PRN sleep 03/21/25 06/26/25 semaglutide 0.25 mg or 0.5 mg (2 0.25 mg subcut QWEEK 03/21/25 06/26/25 mg/1.5 mL) subcutaneous pen injector (tuul) metformin 500 mg tablet 500 mg PO BIDWMEAL #60 tabs 03/23/25 06/26/25 Previous Rx's ?Medication ?Instructions ?Recorded metformin 500 mg tablet 500 mg PO BIDWMEAL #60 tabs 03/23/25 Allergies Allergy/AdvReac Type Severity Reaction Status Date / Time walnut Allergy Anaphylaxis Verified 06/26/25 22:04 General Stated Complaint: ETOHWithdr TWILA: 3 Exam Narrative Exam Narrative: Alert and oriented 39-year-old male with slurred speech, very mild tremor noted hands, ambulatory with steady gait, smells of alcohol sinus tachycardia, alert and oriented x 3 no visible sign of trauma acutely however patient does have some swelling and tenderness throughout the right hand and fourth toe is ecchymotic. No tenderness to left foot or ankle from no tenderness to right wrist, neurovascularly intact, no visible sign of head trauma, no hemotympanum no cervical spine tenderness. Course Vital Signs Vital signs: Vital Signs Temperature 37.1 C 06/26/25 21:56 Pulse 110 H 06/26/25 21:56 Respiratory Rate 18 06/26/25 21:56 Blood Pressure 160/103 H 06/26/25 21:56 Pulse Oximetry 98 06/26/25 21:56 Temperature 37.1 C 06/26/25 21:56 Temperature Source Oral 06/26/25 21:56 Pulse 110 H 06/26/25 21:56 Respiratory Rate 18 06/26/25 21:56 Respiratory Effort Normal, Non-Labored 06/26/25 22:18 Respiratory Depth Normal 06/26/25 22:18 Respiratory Pattern Normal 06/26/25 22:18 Blood Pressure 160/103 H 06/26/25 21:56 Blood Pressure Position Sitting 06/26/25 21:56 Pulse Oximetry 98 06/26/25 21:56 Oxygen Delivery Method Room Air 06/26/25 21:56 Oxygen Flow Rate 0 06/26/25 21:56 Pain Level 0 06/26/25 21:56 Medical Decision Making Assessment and plan: Patient has fine hand tremor and is tachycardic on my assessment. I discussed with patient that we do not want to routinely admit patient for alcohol detox unless they are acutely withdrawing. Patient does not appear to be withdrawing from alcohol, I have ordered labs and placed patient on the monitor for continued assessment. He is not on alcohol and has slurred speech consistent with consuming a bottle of wine on his way to the emergency department. I received a notice from the nurse that the patient was requesting to be discharged to drive to the [email or web address] prior to my reassessment. Security was notified that the patient is under the influence and the police were notifed upon departure in vehicle. I was not able to discuss against medical advice departure, however the patient was alert and oriented on my assessment although under the influence of alcohol and should not be operating a vehicle. PFSH All Active Problems (Updated 06/26/25 @ 22:45 by Andres Guzmán MD) Hyperglycemia without ketosis (Acute) Hyperglycemia due to type 2 diabetes mellitus (Acute) Medical History (Updated 06/26/25 @ 22:45 by Andres Guzmán MD) Diabetes mellitus Gout Alcohol use disorder HTN (hypertension) Social History Smoking/Tobacco Use Status: Current every day Tobacco Type: cigarettes, e-cigarettes and smokeless tobacco Smoking risk assessment performed?: Yes Alcohol Intake: current Alcohol Intake frequency: 3 or more drinks per day Alcohol type: beer, wine and hard liquor Drug use: Daily Substance use type: marijuana Housing: apartment Do you feel safe at home: Yes Do you feel safe in your relationship?: Yes PAWSS Have you Been Recently Intoxicated or Drunk Within the Last 30 days?: Yes Have you Ever Experienced Previous Episodes of Alcohol Withdrawal?: Yes Have you ever Experienced Withdrawal Seizures?: No Have you ever Experienced Delirium Tremens(DT)s?: Yes Have you ever undergone Alcohol Rehabilitation Treatment (i.e, inpt ot outpatient treatment programs)?: Yes Have you ever Experienced Blackouts?: No Have you ever Combined Alcohol with other Downers within the last 90 days?: Yes Have you ever Combined Alcohol with any other Substance of Abuse during the last 90 days?: Yes Positive Blood Alcohol level on Presentation? [PCS.BAL]: Yes Evidence of Increased Autonomic Activity (i.e. HR>120, tremor, sweating, agitation, nausea)?: Yes Result: 8
[2025-06-26 23:03] LABS: BE (Venous) 4 mmol/L (-2-3); HCO3 (Venous) 28 mmol/L (23-28); O2 Sat (Venous) 95 %; TCO2 (Venous) 23 mmol/L (24-29); pCO2 (Venous) 38 mmHg (41-51); pO2 (Venous) 67 mmHg
[2025-06-26 23:04] LABS: Abs Immature Grans 0.03 10^3/uL (0.0-0.06); HCT 49.7 % (40.0-50.0); HGB 17.1 g/dL (13.5-17.5); Immature Grans % 0.3 %; MCH 30.6 pg (27.0-33.0); MCHC 34.4 % (32.0-36.0); MCV 89 fL (80-95); MPV 10.1 fL (8.0-11.0); Platelet Count 311 10^3/uL (130-400); RBC 5.58 10^6/uL (4.36-5.78); RDW 13.7 % (11.8-14.1); RDW-SD 44.6 fL; WBC 9.78 10^3/uL (4.4-10.8)
[2025-06-26] MEDS: Normal Saline 1,000 ML 1000 ML IV (23:15)
[2025-06-26 23:16] LABS: INR 1.1 (0.9-1.1); Prothrombin Time 11.3 sec (9.1-11.1)
[2025-06-26] MEDS: Nicotine 21 MG/24 HR PATCH TD (23:16)
[2025-06-26] MEDS: PHENOBARBITAL IVPB (23:25)
[2025-06-26] MEDS: NORMAL SALINE IVPB (23:25)
[2025-06-26] MEDS: THIAMINE 100 MG in Normal Saline 100 ML 200 MG IVPB (23:26)
[2025-06-26 23:28] LABS: Lipase 91 U/L (<53); Magnesium 1.5 mg/dL (1.6-2.6)
[2025-06-26 23:30] LABS: ALT 75 U/L (10-49); AST 59 U/L (<34); Albumin 4.8 g/dL (3.4-5.0); Alkaline Phosphatase 81 U/L (46-116); Anion Gap 8.7 mmol/L (3-11); BUN 7 mg/dL (9-23); Bilirubin, Total 0.40 mg/dL (0.2-1.2); CO2 27.3 mmol/L (20.0-31.0); Calcium 9.3 mg/dL (8.3-10.6); Chloride 103 mmol/L (98-107); Glucose 97 mg/dL (74-106); Potassium 3.4 mmol/L (3.5-5.1); Sodium 139 mmol/L (136-145); Total Protein 8.0 g/dL (5.7-8.2)
[2025-06-26 23:38] LABS: Acetaminophen < 2 ug/mL (10-20); Salicylate < 3.0 mg/dL (<30.0)
[2025-06-27] VITALS (171 sets, daily range): BP systolic 86–165; BP diastolic 50–119; PULSE 73–134; RESP 12–50; TEMP 35.9–36.8; O2SAT 82–98
[2025-06-27] MEDS: Magnesium Oxide 400 MG TAB PO ×2 (00:02→08:32)
[2025-06-27] MEDS: Potassium Chloride 20 MEQ TABCR 40 MEQ PO (00:02)
[2025-06-27 00:50] LABS: Glucose Negative (Negative)
[2025-06-27 00:59] LABS: COVID-19 PCR Negative (Negative); RSV PCR Negative (Negative)
--- NOTE | 2025-06-27 01:01 | W.PM.HP.N ---
Date of service: 06/27/25 Time of Service: 01:01 Assessment and Plan Assessment and plan (1) Alcohol withdrawal: Status: Acute Assessment and plan: Patient is on the phenobarbital EtOH withdrawal protocol. He is getting replacement of thiamine through banana bag. Will continue to monitor CIWA's and scores. (2) Hyperglycemia due to type 2 diabetes mellitus: Status: Acute Assessment and plan: Holding his metformin at this point. Patient does take Ozempic coverage. (3) HTN (hypertension): Assessment and plan: Continue with losartan (4) Gout: Assessment and plan: Continue colchicine (5) Serum lipase elevation: Status: Acute Assessment and plan: Consistent with his alcohol use. Patient does not complain of any right upper quadrant pain. Will recheck a lipase in the a.m. for completeness. (6) Transaminitis: Status: Acute Assessment and plan: Not necessarily consistent with alcohol use. Mild elevations will just need serial monitoring. (7) Hypomagnesemia: Status: Acute Assessment and plan: Continue with replacement (8) Hypokalemia: Status: Acute Assessment and plan: Has to be viewed in light of the patient's diuretic use. Will replace with oral supplementation. Consider stopping his diuretic if his potassium does not respond. History of Present Illness History of Present Illness Chief Complaint: etoh wd Narrative: Mr Avalos is a 39-year-old gentleman with a known history of diabetes, gout, tobacco abuse, hypertension and alcohol abuse who drank half a gallon of vodka as well as a bottle of wine today. Apparently the patient called 911 on himself in hopes of returning himself and for an attempt at rehab. When I try to get a more thorough history out of the patient he just kept saying he does not remember. Patient does state he has never had withdrawal seizure and has had rehab before unsuccessfully. Patient further states he smokes approximately 1-1/2 packs of cigarettes a day. Patient states he does take his medication as prescribed. While he was in the ED, he was started on a phenobarbital withdrawal order set. Patient was also given a banana bag. Patient denies any abdominal pain. He does have a mildly elevated lipase as well as mild hypokalemia hypomagnesemia and mild transaminitis. He is otherwise without complaint Review of Systems All systems reviewed & are unremarkable except as noted in HPI and below PFSH All Active Problems (Updated 06/27/25 @ 01:15 by Andres Win MD) Hypokalemia (Acute) Hypomagnesemia (Acute) Transaminitis (Acute) Serum lipase elevation (Acute) Homicidal thoughts (Acute) Suicidal risk (Acute) Alcohol withdrawal (Acute) Hyperglycemia without ketosis (Acute) Hyperglycemia due to type 2 diabetes mellitus (Acute) Medical History (Updated 06/27/25 @ 01:15 by Andres Win MD) Diabetes mellitus Gout Alcohol use disorder HTN (hypertension) Social History Smoking/Tobacco Use Status: Current every day Tobacco Type: cigarettes, e-cigarettes and smokeless tobacco Smoking risk assessment performed?: Yes Alcohol Intake: current Alcohol Intake frequency: 3 or more drinks per day Alcohol type: beer, wine and hard liquor Drug use: Daily Substance use type: marijuana Housing: apartment Do you feel safe at home: Yes Do you feel safe in your relationship?: Yes Meds Allergies and Home Medications Allergies Allergy/AdvReac Type Severity Reaction Status Date / Time walnut Allergy Anaphylaxis Verified 06/26/25 22:04 Home Medications ?Medication ?Instructions ?Recorded ?Confirmed ?Type albuterol 90 mcg/actuation aerosol mcg inhalation PRN PRN 03/21/25 History inhaler allopurinol 200 mg tablet 200 mg PO DAILY 03/21/25 06/26/25 History chlorthalidone 25 mg tablet 25 mg PO DAILY 03/21/25 06/26/25 History colchicine 0.6 mg capsule 0.6 mg PO 4XW 03/21/25 06/26/25 History gabapentin 800 mg tablet 800 mg PO TID 03/21/25 06/26/25 History losartan 100 mg tablet (Cozaar) 100 mg PO DAILY 03/21/25 06/26/25 History omeprazole 20 mg capsule,delayed 20 mg PO DAILY 03/21/25 06/26/25 History release propranolol 120 mg capsule,24 240 mg PO DAILY 03/21/25 06/26/25 History hr,extended release (Inderal LA) quetiapine 25 mg tablet (Seroquel) 50 mg PO QHS PRN sleep 03/21/25 06/26/25 History semaglutide 0.25 mg or 0.5 mg (2 0.25 mg subcut QWEEK 03/21/25 06/26/25 History mg/1.5 mL) subcutaneous pen injector (Ozempic) metformin 500 mg tablet 500 mg PO BIDWMEAL #60 tabs 03/23/25 06/26/25 Rx Exam Narrative Exam Narrative: HEENT normocephalic atraumatic mucous membranes moist oropharynx is clear Neck no lymphadenopathy no JVD no thyromegaly Cardiovascular regular rate and rhythm no murmur rubs gallops Lungs bilateral wheeze with expiration no accessory muscle use Abdomen protuberant no tenderness to palpation right upper quadrant Extremities left foot is bandaged Neurologic nonfocal with the exception of bilateral horizontal nystagmus Psych appears somewhat agitated does have clear speech but does not give a linear or at times lucid history Results Labs 06/26/25 22:50 06/26/25 22:54 Labs: Laboratory Results - last 24 hr 06/26/25 06/26/25 06/26/25 00:01 22:28 22:50 WBC 9.78 RBC 5.58 Hgb 17.1 Hct 49.7 MCV 89 MCH 30.6 MCHC 34.4 RDW 13.7 Plt Count 311 MPV 10.1 Immature Gran % 0.3 Neutrophils % 48.1 Lymphocytes % 42.0 Monocytes % 7.8 Eosinophils % 1.2 Basophils % 0.6 Nucleated RBC % 0.0 Absolute Neutrophils 4.70 Absolute Lymphocytes 4.11 H Absolute Monocytes 0.76 Absolute Eosinophils 0.12 Absolute Basophils 0.06 PT INR VBG pH 7.47 H VBG pCO2 38 L VBG pO2 67 VBG HCO3 28 VBG Total CO2 23 L VBG O2 Saturation 95 VBG Base Excess 4 H Sodium Potassium Chloride Carbon Dioxide Anion Gap BUN Creatinine Est GFR (CKD-EPI 2020) Glucose Calcium Magnesium Total Bilirubin AST ALT Alkaline Phosphatase Total Protein Albumin Lipase Urine Color Urine Clarity Urine pH Ur Specific [place] Urine Protein Urine Ketones Urine Blood Urine Nitrite Urine Bilirubin Urine Urobilinogen Ur Leukocyte Esterase Urine Glucose Salicylates Acetaminophen Ethyl Alcohol COVID-19 Source Nasopharynx SARS-CoV-2 (PCR) Negative Influenza Type A (PCR) Negative Influenza Type B (PCR) Negative RSV (PCR) Negative 06/26/25 06/27/25 22:54 00:17 WBC RBC Hgb Hct MCV MCH MCHC RDW Plt Count MPV Immature Gran % Neutrophils % Lymphocytes % Monocytes % Eosinophils % Basophils % Nucleated RBC % Absolute Neutrophils Absolute Lymphocytes Absolute Monocytes Absolute Eosinophils Absolute Basophils PT 11.3 H INR 1.1 VBG pH VBG pCO2 VBG pO2 VBG HCO3 VBG Total CO2 VBG O2 Saturation VBG Base Excess Sodium 139 Potassium 3.4 L Chloride 103 Carbon Dioxide 27.3 Anion Gap 8.7 BUN 7 L Creatinine 0.8 Est GFR (CKD-EPI 2020) 106.17 Glucose 97 Calcium 9.3 Magnesium 1.5 L Total Bilirubin 0.40 AST 59 H ALT 75 H Alkaline Phosphatase 81 Total Protein 8.0 Albumin 4.8 Lipase 91 H Urine Color Yellow Urine Clarity Clear Urine pH 5.5 Ur Specific [place] 1.015 Urine Protein Trace Urine Ketones Negative Urine Blood Negative Urine Nitrite Negative Urine Bilirubin Negative Urine Urobilinogen 0.2 Ur Leukocyte Esterase Negative Urine Glucose Negative Salicylates < 3.0 Acetaminophen < 2 L Ethyl Alcohol 81.3 H COVID-19 Source SARS-CoV-2 (PCR) Influenza Type A (PCR) Influenza Type B (PCR) RSV (PCR) Last Vital Signs Temp 37.1 C 06/26/25 21:56 Pulse 126 H 06/27/25 00:54 Resp 32 H 06/27/25 00:56 BP 158/97 H 06/27/25 00:54 Pulse Ox 95 06/26/25 23:41 PAWSS Have you Been Recently Intoxicated or Drunk Within the Last 30 days?: Yes Have you Ever Experienced Previous Episodes of Alcohol Withdrawal?: Yes Have you ever Experienced Withdrawal Seizures?: No Have you ever Experienced Delirium Tremens(DT)s?: Yes Have you ever undergone Alcohol Rehabilitation Treatment (i.e, inpt ot outpatient treatment programs)?: Yes Have you ever Experienced Blackouts?: No Have you ever Combined Alcohol with other Downers within the last 90 days?: Yes Have you ever Combined Alcohol with any other Substance of Abuse during the last 90 days?: Yes Positive Blood Alcohol level on Presentation? [PCS.BAL]: Yes Evidence of Increased Autonomic Activity (i.e. HR>120, tremor, sweating, agitation, nausea)?: Yes Result: 8 Time Spent Time spent with Patient: 55-74 minutes Time was spent: preparing to see the patient(eg.review tests), obtaining and/or reviewing separately [facility], ordering medications,tests, procedures, referring, communicating with other health nurse healthcare manager, indepentently interpreting results, counseling the patient and care coordination
[2025-06-27 01:07] LABS: Cannabinoids THC Positive (Negative)
[2025-06-27] MEDS: PHENobarbital 130 MG/ML VIAL ×2 (02:30→02:50)
[2025-06-27] MEDS: PHENobarbital 250 MG in Normal Saline 50 ML 100 MG IVPB ×2 (02:34→05:55)
[2025-06-27] MEDS: Normal Saline Flush 10 ML SYR IVP ×6 (02:50→16:08)
[2025-06-27] MEDS: QUEtiapine 25 MG TAB 50 MG PO (03:49)
[2025-06-27] MEDS: PHENobarbital 130 MG/ML VIAL IVP ×4 (03:50→16:08)
[2025-06-27] MEDS: Omeprazole 20 MG CAPCR PO (03:50)
[2025-06-27] MEDS: Calcium Carbonate *TUMS* 500 MG CHEW 1000 MG PO (03:50)
--- NOTE | 2025-06-27 04:17 | W.PC.ACHO ---
Registration Status: ADM IN Primary Language: Preferred Language: ED Information & Data Chief Complaint ETOHWithdr 06/26/25 23:08 Chief Complaint ETOHWithdr 06/26/25 22:03 Other Complaint PsychEval 06/26/25 21:56 Triage Note arrives with [facility], states he 06/26/25 21:56 is withdrawing. last drink was around 7pm this evening which was 3 sips of a beer. was trying to get to [place] to go to detox. Drank a bottle of wine today, 1/3 of a fifth of vodka, and a beer since 3am. blew 0.09 at 2051 for [facility]. also states he is a diabetic and has not checked his sugar. denies SI/HI but says he wants to go home and drink himself. made comments to [facility] about using a gun to shoot at troopers Medical / Surgical History (Last Updated 06/26/25 @ 22:45 by Andres Guzmán MD) Diabetes mellitus Gout Alcohol use disorder HTN (hypertension) Most Recent Vital Signs Temperature 36.7 C 06/27/25 02:10 Temperature Source Tympanic 06/27/25 02:10 Pulse 107 H 06/27/25 04:01 Pulse 107 H 06/27/25 04:01 Respiratory Rate 15 06/27/25 04:01 Respiratory Effort Incrsd Work of Breathing 06/27/25 02:10 Respiratory Depth Deep 06/27/25 02:10 Respiratory Pattern Tachypnea 06/27/25 02:10 Blood Pressure 143/104 H 06/27/25 04:01 Blood Pressure Mean 117 06/27/25 04:01 Blood Pressure Position Sitting 06/27/25 02:10 Pulse Oximetry 94 06/27/25 04:01 Oxygen Delivery Method Room Air 06/27/25 02:10 Oxygen Flow Rate 0 06/27/25 02:10 Pain Level 5 06/27/25 02:10 Allergies walnut Allergy (Verified 06/26/25 22:04) Anaphylaxis Precautions Isolation Standard precaution 06/26/25 22:05 Active Medications Generic Name Dose Route Start Last Admin Trade Name Freq PRN Reason Stop Dose Admin Calcium Carbonate 1,000 mg 06/27/25 03:01 06/27/25 03:50 Calcium Carbonate *Tums* 500 Mg Chew PO 1,000 mg QID PRN PRN Administration Magnesium Oxide 400 mg 06/26/25 23:35 06/27/25 00:02 Magnesium Oxide 400 Mg Tab PO 400 mg BID KORI Administration Phenobarbital Sodium 130 mg 06/27/25 03:18 06/27/25 03:50 Phenobarbital 130 Mg/Ml Vial IVP 130 mg DIRECTED PRN Administration for mild anxiety/agitation Quetiapine Fumarate 50 mg 06/27/25 02:32 06/27/25 03:49 Quetiapine 25 Mg Tab PO 50 mg HS PRN PRN Administration Sleep Sodium Chloride 0 ml 06/26/25 22:26 06/27/25 03:53 Normal Saline Flush 10 Ml Syr IVP 20 ml PRN PRN Administration IV IV Catheter Type [] Peripheral IV IV Catheter Type [Right Peripheral IV Forearm] IV Catheter Gauge [] 18 IV Catheter Gauge [Right 18 Forearm] Diet Orders Category Date Time Status Regular/Normal [DIET] Nutrition 06/27/25 Breakfast Active Regular/Normal [DIET] Nutrition 06/27/25 Breakfast Active Diagnostics 06/27/25 06/27/25 06/26/25 Range/Units 05:35 00:17 22:54 WBC Pending (4.4-10.8) 10^3/uL RBC Pending (4.36-5.78) 10^6/uL Hgb Pending (13.5-17.5) g/dL Hct Pending (40.0-50.0) % MCV Pending (80-95) fL MCH Pending (27.0-33.0) pg MCHC Pending (32.0-36.0) % RDW Pending (11.8-14.1) % Plt Count Pending (130-400) 10^3/uL MPV Pending (8.0-11.0) fL Immature Gran % Pending % Neutrophils % Pending % Lymphocytes % Pending % Monocytes % Pending % Eosinophils % Pending % Basophils % Pending % Nucleated RBC % (0.0-0.3) % Absolute Neutrophils Pending (1.2-6.7) 10^3/uL Absolute Lymphocytes Pending (1.2-3.4) 10^3/uL Absolute Monocytes Pending (0.1-0.8) 10^3/uL Absolute Eosinophils Pending (0.0-0.7) 10^3/uL Absolute Basophils Pending (0.0-0.2) 10^3/uL PT 11.3 H (9.1-11.1) sec INR 1.1 (0.9-1.1) VBG pH (7.31-7.41) VBG pCO2 (41-51) mmHg VBG pO2 mmHg VBG HCO3 (23-28) mmol/L VBG Total CO2 (24-29) mmol/L VBG O2 Saturation % VBG Base Excess (-2-3) mmol/L Sodium Pending 139 (136-145) mmol/L Potassium Pending 3.4 L (3.5-5.1) mmol/L Chloride Pending 103 (98-107) mmol/L Carbon Dioxide Pending 27.3 (20.0-31.0) mmol/L Anion Gap Pending 8.7 (3-11) mmol/L BUN Pending 7 L (9-23) mg/dL Creatinine Pending 0.8 (0.73-1.18) mg/dL Est GFR (CKD-EPI 2020) Pending 106.17 (mL/min/1.73m2) Glucose Pending 97 (74-106) mg/dL Calcium Pending 9.3 (8.3-10.6) mg/dL Magnesium Pending 1.5 L (1.6-2.6) mg/dL Total Bilirubin 0.40 (0.2-1.2) mg/dL AST 59 H (<34) U/L ALT 75 H (10-49) U/L Alkaline Phosphatase 81 (46-116) U/L Total Protein 8.0 (5.7-8.2) g/dL Albumin 4.8 (3.4-5.0) g/dL Lipase Pending 91 H (<53) U/L Urine Color Yellow (Yellow) Urine Clarity Clear (Clear) Urine pH 5.5 (5-8) Ur Specific [place] 1.015 (1.005-1.025) Urine Protein Trace (Neg-Trace) mg/dL Urine Ketones Negative (Negative) mg/dL Urine Blood Negative (Negative) Urine Nitrite Negative (Negative) Urine Bilirubin Negative (Negative) Urine Urobilinogen 0.2 (Up to 0.2) mg/dL Ur Leukocyte Esterase Negative (Negative) Urine Glucose Negative (Negative) mg/dL Salicylates < 3.0 (<30.0) mg/dL Urine Opiates Screen Negative (Negative) Urine Methadone Screen Negative (Negative) Acetaminophen < 2 L (10-20) ug/mL Ur Barbiturates Screen Negative (Negative) Ur Tricyclics Screen Negative (Negative) Ur Amphetamines Screen Negative (Negative) U Benzodiazepines Scrn Negative (Negative) Urine Cocaine Screen Negative (Negative) U Cannabinoids Screen Positive A (Negative) Ethyl Alcohol 81.3 H (<3) mg/dL COVID-19 Source SARS-CoV-2 (PCR) (Negative) Influenza Type A (PCR) (Negative) Influenza Type B (PCR) (Negative) RSV (PCR) (Negative) 06/26/25 06/26/25 06/26/25 Range/Units 22:50 22:28 00:01 WBC 9.78 (4.4-10.8) 10^3/uL RBC 5.58 (4.36-5.78) 10^6/uL Hgb 17.1 (13.5-17.5) g/dL Hct 49.7 (40.0-50.0) % MCV 89 (80-95) fL MCH 30.6 (27.0-33.0) pg MCHC 34.4 (32.0-36.0) % RDW 13.7 (11.8-14.1) % Plt Count 311 (130-400) 10^3/uL MPV 10.1 (8.0-11.0) fL Immature Gran % 0.3 % Neutrophils % 48.1 % Lymphocytes % 42.0 % Monocytes % 7.8 % Eosinophils % 1.2 % Basophils % 0.6 % Nucleated RBC % 0.0 (0.0-0.3) % Absolute Neutrophils 4.70 (1.2-6.7) 10^3/uL Absolute Lymphocytes 4.11 H (1.2-3.4) 10^3/uL Absolute Monocytes 0.76 (0.1-0.8) 10^3/uL Absolute Eosinophils 0.12 (0.0-0.7) 10^3/uL Absolute Basophils 0.06 (0.0-0.2) 10^3/uL PT (9.1-11.1) sec INR (0.9-1.1) VBG pH 7.47 H (7.31-7.41) VBG pCO2 38 L (41-51) mmHg VBG pO2 67 mmHg VBG HCO3 28 (23-28) mmol/L VBG Total CO2 23 L (24-29) mmol/L VBG O2 Saturation 95 % VBG Base Excess 4 H (-2-3) mmol/L Sodium (136-145) mmol/L Potassium (3.5-5.1) mmol/L Chloride (98-107) mmol/L Carbon Dioxide (20.0-31.0) mmol/L Anion Gap (3-11) mmol/L BUN (9-23) mg/dL Creatinine (0.73-1.18) mg/dL Est GFR (CKD-EPI 2020) (mL/min/1.73m2) Glucose (74-106) mg/dL Calcium (8.3-10.6) mg/dL Magnesium (1.6-2.6) mg/dL Total Bilirubin (0.2-1.2) mg/dL AST (<34) U/L ALT (10-49) U/L Alkaline Phosphatase (46-116) U/L Total Protein (5.7-8.2) g/dL Albumin (3.4-5.0) g/dL Lipase (<53) U/L Urine Color (Yellow) Urine Clarity (Clear) Urine pH (5-8) Ur Specific [place] (1.005-1.025) Urine Protein (Neg-Trace) mg/dL Urine Ketones (Negative) mg/dL Urine Blood (Negative) Urine Nitrite (Negative) Urine Bilirubin (Negative) Urine Urobilinogen (Up to 0.2) mg/dL Ur Leukocyte Esterase (Negative) Urine Glucose (Negative) mg/dL Salicylates (<30.0) mg/dL Urine Opiates Screen (Negative) Urine Methadone Screen (Negative) Acetaminophen (10-20) ug/mL Ur Barbiturates Screen (Negative) Ur Tricyclics Screen (Negative) Ur Amphetamines Screen (Negative) U Benzodiazepines Scrn (Negative) Urine Cocaine Screen (Negative) U Cannabinoids Screen (Negative) Ethyl Alcohol (<3) mg/dL COVID-19 Source Nasopharynx SARS-CoV-2 (PCR) Negative (Negative) Influenza Type A (PCR) Negative (Negative) Influenza Type B (PCR) Negative (Negative) RSV (PCR) Negative (Negative) [id number] Documentation Fingerstick Glucose Start: 06/26/25 22:04 Freq: Status: Complete Protocol: Activity Type Activity Date Activity User E-sign Co-sign Detail Recorded Client Recorded Date Recorded By Document 06/26/25 22:04 BEBE DASKYLER(3) [id number] 06/26/25 22:04 BEBE DAEMON(4) Intake and Output - 24 Hour Total 06/26/25 21:52 thru 06/27/25 02:10 Intake Total 1213.6154 Output Total 300 Balance 913.6154 Weight 120 kg Intake: IV 1213.6154 Output: Urine 300 Falls Risk Assessment History of Falls No History 06/27/25 02:10 Contributing Factors No Factors 06/27/25 02:10 Ambulatory Aids Independent 06/27/25 02:10 Tubes/Lines None 06/27/25 02:10 Gait Evaluation No gait disturbance 06/27/25 02:10 Cognition No cognitive impairment 06/27/25 02:10 Fall Total Score 0 06/27/25 02:10 Level of Risk Standard/Low Risk 06/27/25 02:10 Problems (Last Updated 06/26/25 @ 22:45 by Andres Guzmán MD) Hypokalemia (Acute) Hypomagnesemia (Acute) Transaminitis (Acute) Serum lipase elevation (Acute) Alcohol withdrawal (Acute) Hyperglycemia due to type 2 diabetes mellitus (Acute) Attestation Statement: By documenting the first initial, last name, and credentials of the reporting nurse below, both parties acknowledge that all relevant information regarding the patient handoff has been communicated, and that all questions have been addressed to ensure continuity and safety of care. Additional Patient Information/Comments: Report Received From: Tayler BURT
[2025-06-27 06:04] LABS: Abs Immature Grans 0.02 10^3/uL (0.0-0.06); HCT 46.1 % (40.0-50.0); HGB 15.5 g/dL (13.5-17.5); Immature Grans % 0.2 %; MCH 30.5 pg (27.0-33.0); MCHC 33.6 % (32.0-36.0); MCV 91 fL (80-95); MPV 10.7 fL (8.0-11.0); Platelet Count 214 10^3/uL (130-400); RBC 5.09 10^6/uL (4.36-5.78); RDW 13.7 % (11.8-14.1); RDW-SD 45.9 fL; WBC 8.42 10^3/uL (4.4-10.8)
[2025-06-27 06:25] LABS: Lipase 36 U/L (<53)
[2025-06-27 06:26] LABS: Anion Gap 7.1 mmol/L (3-11); BUN 8 mg/dL (9-23); CO2 28.9 mmol/L (20.0-31.0); Calcium 8.7 mg/dL (8.3-10.6); Chloride 105 mmol/L (98-107); Glucose 130 mg/dL (74-106); Magnesium 1.5 mg/dL (1.6-2.6); Potassium 3.3 mmol/L (3.5-5.1); Sodium 141 mmol/L (136-145)
[2025-06-27] MEDS: MAGNESIUM SULFATE 2 GM/50 ML BAG IV_INF (08:31)
[2025-06-27] MEDS: POTASSIUM CHLORIDE 20 MEQ, POTASSIUM CHLORIDE 10 MEQ 30 MEQ PO ×2 (08:31→20:15)
[2025-06-27] MEDS: Magnesium Lactate-SR 84 MG TABCR PO ×2 (08:32→20:15)
[2025-06-27] MEDS: Losartan 50 MG TAB 100 MG PO (08:32)
[2025-06-27] MEDS: Chlorthalidone 25 MG TAB PO (08:32)
[2025-06-27] MEDS: Gabapentin 800 MG TAB PO ×3 (08:33→20:15)
[2025-06-27] MEDS: Allopurinol 100 MG TAB 200 MG PO (08:33)
[2025-06-27] MEDS: MULTIVITAMIN 10 ML, THIAMINE 100 MG, FOLIC ACID 1 MG in DEXTROSE 5%-0.45% SALINE 1,000 ML 42 ML IV (08:53)
--- NOTE | 2025-06-27 09:33 | INITIAL_ITS ---
Date of service: 06/27/25 Time of Service: 09:33 Care Management Initial Assmt Initial Assessment Reason for Hospitalization: Etoh withdrawal Functional Status/Living Situation Patient Presentation: Kiran was asleep when CM attempted to meet with him. He had been medicated a short while before and CM was asked by his nurse not to disturb him. CM returned later in the day but was again unable to meet with Kiran as he had been started on a Precedex drip, having reached the hard stop with the phenobarbital protocol. Kiran was admitted with alcohol withdrawal. Apparently yesterday he was seen in the [facility] ED seeking detox for alcohol use. Because he had just consumed a bottle of wine, he was told he could not be admitted for detoxification as he was not in withdrawal. He left AMA and was later apprehended by [facility] and brought back to the ED and admitted. While in police custody he made several HI and SI statements and was found with 2 loaded guns in his vehicle. Initially he was placed on a 1:1 but the order was discontinued today. The provider assessed Kiran this morning and he denied having HI/SI thoughts. Kiran is in the ICU and will be under continuous surveillance via camera or in person, similar to the setup in [place]. He is also now on a Precedex drip, making it more unlikely he would be able to harm himself or others. When medically cleared, he will be screened by [facility]. Town of Residence: [facility] Resides with: Alone Natural Supports: father Instrumental Activities of Daily Living (ADLs): Independent Medications Medication Management: No Issues/Barriers identified Advance Directives Advance Directives: Do you have an Advance Directive: AD On File at [facility]: N 03/21/25, 17:45 Date Asked 06/26/25 06/26/25, 17:02 AD Date Reviewed COLST On File at [facility] COLST Date Scanned Code Status Resuscitation Status Full Code Insurance Coverage/Financial Issues Insurance: [place] Care Team Visit Care Team Role Provider Type Андрей Goff MD [facility] STAFF PHYSICIAN DULCE MARISCAL Primary Care Provider NON-[facility] STAFF PHYSICIAN Andres Guzmán MD Emergency Provider [facility] STAFF PHYSICIAN Andres Win MD Admit Provider [facility] STAFF PHYSICIAN Attending Provider Discharge Potential Discharge Needs: PCP F/U Appt Anticipated Barriers to Discharge: None Identified Patient/Family Education Needs: Review discharge instructions, discuss Ask Me Three Transportation: Private vehicle Plan: Mckay was admitted in alcohol withdrawal. While in police custody, when he was inebriated, he made some SI/HI statements. When medically cleared he will be screened by [facility]. In the meantime he is under continuous surveillance either by camera or in person. CM will follow and continue to assess for discharge needs. Social Determinants of Health Screening Social Determinants of health last assessed in clinic: 06/28/25 Will the Patient Participate in the Screening?: Yes Do you worry about having a steady place to live?: no Problems where you live: no known problems In the past 12 months, have you had to go without electric, gas, oil or water in your home?: no 1. Within the past 12 months, we worried whether our food would run out before we got money to buy more.: Never true 2. Within the past 12 months, the food we bought just didn't last and we didn't have money to get more.: Never true Has lack of transportation kept you from medical appointments or from doing things needed for daily living?: no Has anyone in your life made you feel unsafe or unsupported?: no How hard is it for you to pay for the very basics like food, housing, medical care, and heating? Would you say it is:: Not hard at all Do you want help finding or keeping work or a job?: Yes, help finding work If for any reason you need help with day-to-day activities such as bathing, preparing meals, shopping, managing finances, etc., do you get the help you need?: I don?t need any help How often do you feel lonely or isolated from those around you?: Often Do you speak a language other than [place]i at home?: No Does the patient want assistance with any of the above?: Yes Health Related Social Needs Health related social needs: problems finding work (Z56.9) and feeling lonely/isolated (Z60.8) Health related social needs details: states he struggles to find work and unemployment leaves him too much free time PFSH All Active Problems (Updated 06/27/25 @ 12:35 by Андрей Goff) Pain in toe of left foot (Acute) Hypokalemia (Acute) Hypomagnesemia (Acute) Transaminitis (Acute) Serum lipase elevation (Acute) Homicidal thoughts (Acute) Suicidal risk (Acute) Alcohol withdrawal (Acute) Hyperglycemia without ketosis (Acute) Hyperglycemia due to type 2 diabetes mellitus (Acute) Medical History (Updated 06/27/25 @ 12:35 by Андрей Goff) Diabetes mellitus Gout Alcohol use disorder HTN (hypertension) Social History Smoking/Tobacco Use Status: Current every day Tobacco Type: cigarettes, e- cigarettes and smokeless tobacco Smoking risk assessment performed?: Yes Alcohol Intake: current Alcohol Intake frequency: 3 or more drinks per day Alcohol type: beer, wine and hard liquor Substance use type: marijuana Housing: house Do you feel safe at home: Yes Do you feel safe in your relationship?: Yes
[2025-06-27] MEDS: Propranolol 80 MG CAPCR 240 MG PO (09:49)
[2025-06-27] MEDS: metFORMIN 500 MG TAB PO ×2 (09:49→16:08)
--- NOTE | 2025-06-27 12:27 | W.PM.PROGNOT ---
Date of Service Date of service: 06/27/25 Time of Service: 10:00 Assessment and Plan Assessment and plan (1) Alcohol withdrawal: Status: Acute Assessment and plan: Patient is on the phenobarbital EtOH withdrawal protocol. He may need addition of precedex as he is nearing hard stop on phenobarbital already. He is getting replacement of thiamine through banana bag, transition to oral after this bag. Will continue to monitor CIWA's and scores. (2) Hyperglycemia due to type 2 diabetes mellitus: Status: Acute Assessment and plan: Can take metformin as GFR okay and no contrast studies. No ozempic available here. ISS low with fingersticks. (3) HTN (hypertension): Assessment and plan: Continue with losartan, CLD. propranolol (4) Gout: Assessment and plan: Continue colchicine and allopurinol. He (5) Serum lipase elevation: Status: Acute Assessment and plan: Consistent with his alcohol use. No pain c/w pancreatitis, this normalized on repeat. (6) Transaminitis: Status: Acute Assessment and plan: Likely a/w alcohol use. Also at risk for MASLD with BMI. Follow. (7) Hypomagnesemia: Status: Acute Assessment and plan: Continue with replacement (8) Hypokalemia: Status: Acute Assessment and plan: Has to be viewed in light of the patient's diuretic use. Will replace with oral supplementation. Consider stopping his diuretic if his potassium does not respond as his thiazide will also make his gout worse. (9) Pain in toe of left foot: Status: Acute Assessment and plan: Acute, traumatic. Apparently had a negative XR elsewhere. Very tender. may have triggered local gout but not classic. Try diclofenac topically. Rony tape when he is walking again to protect. Subjective Subjective Patient reports: tolerating a regular diet and voiding w/o difficulty; denies diarrhea, nausea, vomiting, shortness of breath or fever Interval history since last seen: He still feels shaky. Better than last night. He is starving. He denies active SI/HI. He wants to be sober and has had over a year without alcohol prior to recent relapse. Exam Narrative Exam Narrative: Gen: Alert and oriented, slightly irritable, but appropriate, linear thought process, no hallucinations. Cardiovascular regular rate and rhythm no murmur rubs gallops Lungs bilateral wheeze with expiration no accessory muscle use Abdomen: +BS, soft, protuberant but no tenderness to palpation Extremities: warm, no edema. Left foot with tender purple distal 4th toe (states injured this a week ago) Neurologic: CN grossly intact, mild tremor with hands extended, no nystagmus this morning. Objective Last Vital Signs Temp 35.9 C L 06/27/25 07:30 Pulse 88 06/27/25 11:21 Resp 17 06/27/25 11:21 BP 122/84 06/27/25 11:21 Pulse Ox 92 06/27/25 11:21 Laboratory Results - last 24 hr 06/26/25 06/26/25 06/26/25 00:01 22:28 22:50 WBC 9.78 RBC 5.58 Hgb 17.1 Hct 49.7 MCV 89 MCH 30.6 MCHC 34.4 RDW 13.7 Plt Count 311 MPV 10.1 Immature Gran % 0.3 Neutrophils % 48.1 Lymphocytes % 42.0 Monocytes % 7.8 Eosinophils % 1.2 Basophils % 0.6 Nucleated RBC % 0.0 Absolute Neutrophils 4.70 Absolute Lymphocytes 4.11 H Absolute Monocytes 0.76 Absolute Eosinophils 0.12 Absolute Basophils 0.06 PT INR VBG pH 7.47 H VBG pCO2 38 L VBG pO2 67 VBG HCO3 28 VBG Total CO2 23 L VBG O2 Saturation 95 VBG Base Excess 4 H Sodium Potassium Chloride Carbon Dioxide Anion Gap BUN Creatinine Est GFR (CKD-EPI 2020) Glucose Calcium Magnesium Total Bilirubin AST ALT Alkaline Phosphatase Total Protein Albumin Lipase Urine Color Urine Clarity Urine pH Ur Specific [place] Urine Protein Urine Ketones Urine Blood Urine Nitrite Urine Bilirubin Urine Urobilinogen Ur Leukocyte Esterase Urine Glucose Salicylates Urine Opiates Screen Urine Methadone Screen Acetaminophen Ur Barbiturates Screen Ur Tricyclics Screen Ur Amphetamines Screen U Benzodiazepines Scrn Urine Cocaine Screen U Cannabinoids Screen Ethyl Alcohol COVID-19 Source Nasopharynx SARS-CoV-2 (PCR) Negative Influenza Type A (PCR) Negative Influenza Type B (PCR) Negative RSV (PCR) Negative 06/26/25 06/27/25 06/27/25 22:54 00:17 05:29 WBC 8.42 RBC 5.09 Hgb 15.5 Hct 46.1 MCV 91 MCH 30.5 MCHC 33.6 RDW 13.7 Plt Count 214 MPV 10.7 Immature Gran % 0.2 Neutrophils % 61.7 Lymphocytes % 28.4 Monocytes % 8.0 Eosinophils % 1.2 Basophils % 0.5 Nucleated RBC % 0.0 Absolute Neutrophils 5.20 Absolute Lymphocytes 2.39 Absolute Monocytes 0.67 Absolute Eosinophils 0.10 Absolute Basophils 0.04 PT 11.3 H INR 1.1 VBG pH VBG pCO2 VBG pO2 VBG HCO3 VBG Total CO2 VBG O2 Saturation VBG Base Excess Sodium 139 141 Potassium 3.4 L 3.3 L Chloride 103 105 Carbon Dioxide 27.3 28.9 Anion Gap 8.7 7.1 BUN 7 L 8 L Creatinine 0.8 0.8 Est GFR (CKD-EPI 2020) 106.17 112.64 Glucose 97 130 H Calcium 9.3 8.7 Magnesium 1.5 L 1.5 L Total Bilirubin 0.40 AST 59 H ALT 75 H Alkaline Phosphatase 81 Total Protein 8.0 Albumin 4.8 Lipase 91 H 36 Urine Color Yellow Urine Clarity Clear Urine pH 5.5 Ur Specific [place] 1.015 Urine Protein Trace Urine Ketones Negative Urine Blood Negative Urine Nitrite Negative Urine Bilirubin Negative Urine Urobilinogen 0.2 Ur Leukocyte Esterase Negative Urine Glucose Negative Salicylates < 3.0 Urine Opiates Screen Negative Urine Methadone Screen Negative Acetaminophen < 2 L Ur Barbiturates Screen Negative Ur Tricyclics Screen Negative Ur Amphetamines Screen Negative U Benzodiazepines Scrn Negative Urine Cocaine Screen Negative U Cannabinoids Screen Positive A Ethyl Alcohol 81.3 H COVID-19 Source SARS-CoV-2 (PCR) Influenza Type A (PCR) Influenza Type B (PCR) RSV (PCR) PAWSS Have you Been Recently Intoxicated or Drunk Within the Last 30 days?: Yes Have you Ever Experienced Previous Episodes of Alcohol Withdrawal?: Yes Have you ever Experienced Withdrawal Seizures?: No Have you ever Experienced Delirium Tremens(DT)s?: Yes Have you ever undergone Alcohol Rehabilitation Treatment (i.e, inpt ot outpatient treatment programs)?: Yes Have you ever Experienced Blackouts?: No Have you ever Combined Alcohol with other Downers within the last 90 days?: Yes Have you ever Combined Alcohol with any other Substance of Abuse during the last 90 days?: Yes Positive Blood Alcohol level on Presentation? [PCS.BAL]: Yes Evidence of Increased Autonomic Activity (i.e. HR>120, tremor, sweating, agitation, nausea)?: Yes Result: 8 Time Spent with Patient Time Spent with Patient: >50 minutes Time was spent: preparing to see the patient(eg.review tests), obtaining and/or reviewing separately otained hiistory, ordering medications,tests, procedures, referring, communicating with other health small animal caretaker, indepentently interpreting results, counseling the patient and care coordination
[2025-06-27] MEDS: dexmedeTOMidine IN 0.9 % NACL 400 MCG/100 ML BTL 5.995 MCG IV (16:58)
[2025-06-27] MEDS: Diclofenac 1% Gel 100 GM TUBE TP (16:58)
--- NOTE | 2025-06-27 18:43 | CMSP_ITS ---
Care Management Safety Plan Status Status: Interim Reason for Wait Reason for Wait: Assessment/Screening Safety Plan Safety Plan: CM will respond to assess patient after patient has been medically cleared and assessed by screener. If screener deems patient meets criteria for psychiatric stabilization CM will facilitate interdepartmental huddle with [facility] screener for safety planning considerations and meet with patient to review [facility] policy and safety plan, establish individual wishes for treatment and maintain patient rights. In the interim; please note safety plan below to guide patient care while awaiting further assessment.? SAFETY PLAN: 1. Will remain on suicide precautions and in paper clothes.? 2. Will remain in room under direct supervision (via camera or in person) of staff at all times provided by [employer] motorcycle police officer. 3. May have paper cups, plates, finger foods as well as a cardboard spoon with which to eat meals. 4. Follow [facility] Management of the Admitted Behavioral Health Patient policy. 5. Comfort bath system only. 6. No personal belongings 7. No visitors. 8. Phone contact using portable phone at RN discretion 9. Due to VOLUNTARY status, if patient wishes to leave [facility], staff will contact [facility] Crisis Screener ([phone]) and [employer]-Call [employer] ([phone]) as soon as possible. In the event of elopement, notify [facility] Police ([phone]). ? If deemed appropriate for inpatient psychiatric care, safety plan will be established with patient, and care team, to adhere to patient goals, identify restrictions based on behavioral status, address nutrition, and determine allowed personal belongings, tools for hygiene and personal care. As well plan will determine level of activity including ambulation, level of supervision, visitors, and determine privileges based on level of acuity, behaviors and level of engagement by patient.
[2025-06-28] VITALS (13 sets, daily range): BP systolic 105–141; BP diastolic 70–111; PULSE 62–75; RESP 14–21; O2SAT 88–96
[2025-06-28] MEDS: dexmedeTOMidine IN 0.9 % NACL 400 MCG/100 ML BTL IV (02:40)
[2025-06-28] MEDS: Normal Saline Flush 10 ML SYR IVP (02:45)
--- NOTE | 2025-06-28 05:12 | W.PM.DS.N ---
Date of service: 06/28/25 Time of Service: 05:15 DS: Diagnosis Discharge Diagnosis (1) Alcohol withdrawal: Status: Acute (2) Hyperglycemia due to type 2 diabetes mellitus: Status: Acute (3) Serum lipase elevation: Status: Acute (4) Transaminitis: Status: Acute (5) Hypomagnesemia: Status: Acute (6) Hypokalemia: Status: Acute (7) Pain in toe of left foot: Status: Acute Discharge Plan Disposition Patient Disposition: Against Medical Advice Condition: Stable Discharge Details Reason For Visit: Etoh w/d Admit Date/Time: 06/27/25 00:57 Admit Provider: Andres Win Attending Provider: Andres iWn Primary Care Provider: DULCE ERICKSON [facility] Course Hospital Course: Mr Avalos is a 39-year-old gentleman who was admitted for alcohol withdrawal yesterday. At approximately 5 in the AM nursing staff reported the patient wanted to leave. I went and discussed the prognosis with the patient and told him that if he does leave AMA there is a chance that he could have permanent disability or . Patient states that he is not having any auditory or visual hallucinations. The patient denies any suicidal or homicidal ideation. Patient does appear to be able to understand the consequences of his choices. Patient will not be driving as his car is impounded. Patient will leave AGAINST MEDICAL ADVICE Home Meds and New Rx's Prescriptions: No Action Ozempic 0.25 mg or 0.5 mg(2 mg/1.5 mL) pen injector 0.25 mg subcut QWEEK Rx Instructions: for 4 weeks losartan [Cozaar] 100 mg tablet 100 mg PO DAILY propranolol [Inderal LA] 120 mg capsule,extended release 24 hr 240 mg PO DAILY gabapentin 800 mg tablet 800 mg PO TID omeprazole 20 mg capsule,delayed release(DR/EC) 20 mg PO DAILY allopurinol 200 mg tablet 200 mg PO DAILY albuterol 90 mcg/actuation aerosol 90 mcg inhalation PRN PRN colchicine 0.6 mg capsule 0.6 mg PO 4XW chlorthalidone 25 mg tablet 25 mg PO DAILY quetiapine [Seroquel] 25 mg tablet 50 mg PO QHS PRN (Reason: sleep) metformin 500 mg tablet 500 mg PO BIDWMEAL Qty: 60 0RF Discharge Instructions Stand Alone Forms: Portal Information Activity:: Activity as Tolerated Diet:: As Tolerated DS: Summary Time Spent with Patient providing and/or coordinating discharge services: Less than 30 minutes Status at Discharge Functional status at discharge: independent ambulation Overall status at discharge: patient is back to baseline Mental Status: mental status grossly normal Speech and Movement: speech and movement normal Mood: congruent mood Affect: normal affect Quality:SDOH Health Related Social Needs: Health related social needs finding work lonely/isolated Health related social needs details states he struggles to find work and unemployment leaves him too much free time Health related social needs details: states he struggles to find work and unemployment leaves him too much free time Exam Narrative Exam Narrative: Alert and oriented x 3 no auditory visual hallucinations no tremors speaking in complete sentences Psych Mental Status: mental status grossly normal Speech and Movement: speech and movement normal Mood: congruent mood Affect: normal affect DS: Data Vitals/I&O Vitals and I&O: Vital Signs Temperature 36.2 C L 06/27/25 17:00 Temperature Source Temporal Artery Scan 06/27/25 17:00 Pulse 62 06/28/25 03:01 Pulse 63 06/28/25 03:01 Respiratory Rate 16 06/28/25 03:01 Respiratory Effort Incrsd Work of Breathing 06/27/25 02:10 Respiratory Depth Deep 06/27/25 02:10 Respiratory Pattern Tachypnea 06/27/25 02:10 Blood Pressure 108/74 06/28/25 03:01 Blood Pressure Mean 84 06/28/25 03:01 Blood Pressure Position Sitting 06/27/25 02:10 Pulse Oximetry 93 06/28/25 03:01 Oxygen Delivery Method OxyMask 06/27/25 18:08 Oxygen Flow Rate 2 06/27/25 18:08 Pain Level 5 06/27/25 02:10 Intake & Output 06/27/25 06/27/25 06/28/25 11:59 23:59 11:59 Intake Total 1694.8462 / 2358.8462 664 / 2358.8462 58.152 / 58.152 Output Total 300 / 2200 1900 / 2200 Balance 1394.8462 / 158.8462 -1236 / 158.8462 58.152 / 58.152 Weight 119.9 kg Intake: IV 1334.8462 / 1334.8462 58.152 / 58.152 Oral 360 / 1024 664 / 1024 Output: Urine 300 / 2200 1900 / 2200 Other: Urine Color Light Nidia Yellow Urine Appearance Clear Clear Comment pt voided in commode. urine mixed with stool. amount not measured Stool Size Moderate Large Stool Characteristics Soft Soft Formed Brown Data Completed and Pending Pending Labs at Discharge: 06/26/25 06/26/25 06/26/25 00:01 22:28 22:50 WBC 9.78 RBC 5.58 Hgb 17.1 Hct 49.7 MCV 89 MCH 30.6 MCHC 34.4 RDW 13.7 Plt Count 311 MPV 10.1 Immature Gran % 0.3 Neutrophils % 48.1 Lymphocytes % 42.0 Monocytes % 7.8 Eosinophils % 1.2 Basophils % 0.6 Nucleated RBC % 0.0 Absolute Neutrophils 4.70 Absolute Lymphocytes 4.11 H Absolute Monocytes 0.76 Absolute Eosinophils 0.12 Absolute Basophils 0.06 PT INR VBG pH 7.47 H VBG pCO2 38 L VBG pO2 67 VBG HCO3 28 VBG Total CO2 23 L VBG O2 Saturation 95 VBG Base Excess 4 H Sodium Potassium Chloride Carbon Dioxide Anion Gap BUN Creatinine Est GFR (CKD-EPI 2020) Glucose Hemoglobin A1c Calcium Magnesium Total Bilirubin AST ALT Alkaline Phosphatase Total Protein Albumin Lipase Urine Color Urine Clarity Urine pH Ur Specific [place] Urine Protein Urine Ketones Urine Blood Urine Nitrite Urine Bilirubin Urine Urobilinogen Ur Leukocyte Esterase Urine Glucose Salicylates Urine Opiates Screen Urine Methadone Screen Acetaminophen Ur Barbiturates Screen Ur Tricyclics Screen Ur Amphetamines Screen U Benzodiazepines Scrn Urine Cocaine Screen U Cannabinoids Screen Ethyl Alcohol COVID-19 Source Nasopharynx SARS-CoV-2 (PCR) Negative Influenza Type A (PCR) Negative Influenza Type B (PCR) Negative RSV (PCR) Negative 06/26/25 06/27/25 06/27/25 22:54 00:17 05:29 WBC 8.42 RBC 5.09 Hgb 15.5 Hct 46.1 MCV 91 MCH 30.5 MCHC 33.6 RDW 13.7 Plt Count 214 MPV 10.7 Immature Gran % 0.2 Neutrophils % 61.7 Lymphocytes % 28.4 Monocytes % 8.0 Eosinophils % 1.2 Basophils % 0.5 Nucleated RBC % 0.0 Absolute Neutrophils 5.20 Absolute Lymphocytes 2.39 Absolute Monocytes 0.67 Absolute Eosinophils 0.10 Absolute Basophils 0.04 PT 11.3 H INR 1.1 VBG pH VBG pCO2 VBG pO2 VBG HCO3 VBG Total CO2 VBG O2 Saturation VBG Base Excess Sodium 139 141 Potassium 3.4 L 3.3 L Chloride 103 105 Carbon Dioxide 27.3 28.9 Anion Gap 8.7 7.1 BUN 7 L 8 L Creatinine 0.8 0.8 Est GFR (CKD-EPI 2020) 106.17 112.64 Glucose 97 130 H Hemoglobin A1c Calcium 9.3 8.7 Magnesium 1.5 L 1.5 L Total Bilirubin 0.40 AST 59 H ALT 75 H Alkaline Phosphatase 81 Total Protein 8.0 Albumin 4.8 Lipase 91 H 36 Urine Color Yellow Urine Clarity Clear Urine pH 5.5 Ur Specific [place] 1.015 Urine Protein Trace Urine Ketones Negative Urine Blood Negative Urine Nitrite Negative Urine Bilirubin Negative Urine Urobilinogen 0.2 Ur Leukocyte Esterase Negative Urine Glucose Negative Salicylates < 3.0 Urine Opiates Screen Negative Urine Methadone Screen Negative Acetaminophen < 2 L Ur Barbiturates Screen Negative Ur Tricyclics Screen Negative Ur Amphetamines Screen Negative U Benzodiazepines Scrn Negative Urine Cocaine Screen Negative U Cannabinoids Screen Positive A Ethyl Alcohol 81.3 H COVID-19 Source SARS-CoV-2 (PCR) Influenza Type A (PCR) Influenza Type B (PCR) RSV (PCR) 06/28/25 05:35 WBC RBC Hgb Hct MCV MCH MCHC RDW Plt Count MPV Immature Gran % Neutrophils % Lymphocytes % Monocytes % Eosinophils % Basophils % Nucleated RBC % Absolute Neutrophils Absolute Lymphocytes Absolute Monocytes Absolute Eosinophils Absolute Basophils PT INR VBG pH VBG pCO2 VBG pO2 VBG HCO3 VBG Total CO2 VBG O2 Saturation VBG Base Excess Sodium Pending Potassium Pending Chloride Pending Carbon Dioxide Pending Anion Gap Pending BUN Pending Creatinine Pending Est GFR (CKD-EPI 2020) Pending Glucose Pending Hemoglobin A1c Pending Calcium Pending Magnesium Pending Total Bilirubin Pending AST Pending ALT Pending Alkaline Phosphatase Pending Total Protein Pending Albumin Pending Lipase Urine Color Urine Clarity Urine pH Ur Specific [place] Urine Protein Urine Ketones Urine Blood Urine Nitrite Urine Bilirubin Urine Urobilinogen Ur Leukocyte Esterase Urine Glucose Salicylates Urine Opiates Screen Urine Methadone Screen Acetaminophen Ur Barbiturates Screen Ur Tricyclics Screen Ur Amphetamines Screen U Benzodiazepines Scrn Urine Cocaine Screen U Cannabinoids Screen Ethyl Alcohol COVID-19 Source SARS-CoV-2 (PCR) Influenza Type A (PCR) Influenza Type B (PCR) RSV (PCR) PFSH All Active Problems (Updated 06/27/25 @ 12:35 by Андрей Goff) Pain in toe of left foot (Acute) Hypokalemia (Acute) Hypomagnesemia (Acute) Transaminitis (Acute) Serum lipase elevation (Acute) Homicidal thoughts (Acute) Suicidal risk (Acute) Alcohol withdrawal (Acute) Hyperglycemia without ketosis (Acute) Hyperglycemia due to type 2 diabetes mellitus (Acute) Medical History (Updated 06/27/25 @ 12:35 by Андрей Goff) Diabetes mellitus Gout Alcohol use disorder HTN (hypertension) Social History Smoking/Tobacco Use Status: Current every day Tobacco Type: cigarettes, e-cigarettes and smokeless tobacco Smoking risk assessment performed?: Yes Alcohol Intake: current Alcohol Intake frequency: 3 or more drinks per day Alcohol type: beer, wine and hard liquor Substance use type: marijuana Housing: house Do you feel safe at home: Yes Do you feel safe in your relationship?: Yes Time Spent with Patient Time Spent with Patient: <45 minutes Time was spent: preparing to see the patient(eg.review tests), obtaining and/or reviewing separately otained hiistory, ordering medications,tests, procedures, referring, communicating with other health client care consultant, indepentently interpreting results, counseling the patient and care coordination
[2025-06-28] MEDS: Nicotine 4 MG LOZG SUC ×2 (05:25→07:34)
[2025-06-28] MEDS: Propranolol 80 MG CAPCR 240 MG PO (07:34)
[2025-06-28] MEDS: POTASSIUM CHLORIDE 20 MEQ, POTASSIUM CHLORIDE 10 MEQ 30 MEQ PO (07:34)
[2025-06-28] MEDS: metFORMIN 500 MG TAB PO (07:34)
[2025-06-28] MEDS: Chlorthalidone 25 MG TAB PO (07:35)
[2025-06-28] MEDS: Omeprazole 20 MG CAPCR PO (07:35)
[2025-06-28] MEDS: Gabapentin 800 MG TAB PO (07:35)
[2025-06-28] MEDS: Losartan 50 MG TAB 100 MG PO (07:35)
[2025-06-28] MEDS: Allopurinol 100 MG TAB 200 MG PO (07:36)
[2025-06-28] MEDS: Magnesium Lactate-SR 84 MG TABCR PO (07:39)
--- NOTE | 2025-06-28 09:05 | NUR.NOTE ---
Nursing Note: Pt left AMA - see Provider Visit and Teaching Record for details leading up to pt leaving.
--- NOTE | 2025-06-28 09:19 | PDOC.CMPRO ---
Date of service: 06/28/25 Time of Service: 09:19 Care Management Progress Note Progress Note Text Progress Note Text: Mckay decided to leave the hospital against medical advice this morning. He informed his nurse that he wanted to get to the police [place] to retrieve his guns then he planned to go get his car. [facility] was contacted when Kiran first stated his intent to leave. contacted [facility] to do a screening as Kiran had made some SI/HI statements. Unfortunately, Kiran left before [facility] staff arrived. The provider saw Kiran again this morning and did not feel he was a threat to himself or others and did not feel it was appropriate to hold him invcoluntarily. Social Determinants of Health Screening Social Determinants of health last assessed in clinic: 06/28/25 Will the Patient Participate in the Screening?: Yes Do you worry about having a steady place to live?: no Problems where you live: no known problems In the past 12 months, have you had to go without electric, gas, oil or water in your home?: no Has lack of transportation kept you from medical appointments or from doing things needed for daily living?: no Has anyone in your life made you feel unsafe or unsupported?: no How hard is it for you to pay for the very basics like food, housing, medical care, and heating? Would you say it is:: Not hard at all Do you want help finding or keeping work or a job?: Yes, help finding work If for any reason you need help with day-to-day activities such as bathing, preparing meals, shopping, managing finances, etc., do you get the help you need?: I don?t need any help How often do you feel lonely or isolated from those around you?: Often Do you speak a language other than German at home?: No Does the patient want assistance with any of the above?: Yes Health Related Social Needs Health related social needs: problems finding work (Z56.9) and feeling lonely/isolated (Z60.8) Health related social needs details: states he struggles to find work and unemployment leaves him too much free time
== END 2025-06-28 09:05 | disposition left against medical advice (07) | DRG 894 ==
LOC: ER 23:49 → ICU 06-27 02:10
PROVIDERS: Admitting Provider Hospitalist; Emergency Provider Emergency Medicine; PCP Internal Medicine; Responsible Provider Family Medicine; Visit Provider Hospitalist
DX: F10.139 Alcohol abuse with withdrawal, unspecified (principal); R45.851 Suicidal ideations; E11.65 Type 2 diabetes mellitus with hyperglycemia; I10 Essential (primary) hypertension; M10.9 Gout, unspecified; R74.01 Elevation of levels of liver transaminase levels; E83.42 Hypomagnesemia; E87.6 Hypokalemia; F17.210 Nicotine dependence, cigarettes, uncomplicated; F12.90 Cannabis use, unspecified, uncomplicated; F17.290 Nicotine dependence, other tobacco product, uncomplicated; F17.220 Nicotine dependence, chewing tobacco, uncomplicated; Y90.4 Blood alcohol level of 80-99 mg/100 ml; Z79.85 Long-term (current) use of injectable non-insulin antidiabetic drugs; Z79.84 Long term (current) use of oral hypoglycemic drugs; Z56.9 Unspecified problems related to employment; Z60.8 Other problems related to social environment; R45.850 Homicidal ideations; M79.675 Pain in left toe(s)
CPT/HCPCS: 00123; 36415; 36416; 80048; 80053; 80307; 82805; 82962; 83690; 87637; 93005; 96365; 96368; 99291; 80320; 80329; 81003; 83036; 83735; 85025; 85610; 93010; 99222; 99238; J1815; J2560; J3411; J3475

== ENCOUNTER 2025-06-30 00:49 | Emergency (ER) | payer OTHER, SELFPAY ==
--- NOTE | 2025-06-30 00:45 | RT.EKG_ITS ---
APPROVED REPORT Exam: Resting ECG Reason for Exam: lightheaded Patient Location: E HR:93 bpm ECG Measurements Heart Rate 93 AXIS WI 130 P 44 QRSd 95 QRS 56 QT 355 T 49 QTc 441 Conclusion Sinus rhythm...normal P axis, V-rate 60- [address] segment or T wave abnormalities to suggest occlusive GA
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
[2025-06-30 00:54] VITALS: BP 195/111; PULSE 100; RESP 18; TEMP 35.9; O2SAT 97
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
[2025-06-30 04:18] VITALS: BP 198/102; PULSE 99; RESP 18; O2SAT 99
--- NOTE | 2025-07-02 12:49 | NUR.NOTE ---
Access chart to print the demographic sheet for [facility] billing requisition. Nursing Note:
== END 2025-06-30 04:19 | disposition home or self-care (01) ==
PROVIDERS: Emergency Provider Student in an Organized Health Care Education/Training Program; PCP Internal Medicine
DX: S06.0X0A Concussion without loss of consciousness, initial encounter (principal); M25.532 Pain in left wrist; E11.9 Type 2 diabetes mellitus without complications; I10 Essential (primary) hypertension; Z79.899 Other long term (current) drug therapy; Y35.813A Legal intervention involving manhandling, suspect injured, initial encounter; Y93.89 Activity, other specified
CPT/HCPCS: 93005; 99284; 70450; 73110; 73130; 93010